=== PATIENT | female | born 1965 | race Caucasian/White ===

== ENCOUNTER 2020-12-20 10:25 | Outpatient (REF) | payer MEDICAID, SELFPAY ==
[2020-12-20 11:01] LABS: IDNOW Serial# 9DD0AD1C
[2020-12-20 11:02] LABS: COVID-19 Test Negative (Negative)
== END 2020-12-20 10:26 | disposition home or self-care (01) ==
LOC: HO.LAB 10:25
PROVIDERS: Visit Provider Internal Medicine
DX: Z20.822 Contact with and (suspected) exposure to COVID-19 (principal)
CPT/HCPCS: 36415; 87635; C9803

== ENCOUNTER 2021-04-18 13:59 | Outpatient (REF) | payer MEDICAID, SELFPAY | END 2021-04-18 14:00 | disposition home or self-care (01) | LOC: HO.LAB 13:59 | PROVIDERS: Visit Provider Internal Medicine | DX: Z20.822 Contact with and (suspected) exposure to COVID-19 (principal) | CPT/HCPCS: C9803; U0003; U0005 ==

== ENCOUNTER 2021-05-02 09:47 | Outpatient (REF) | payer MEDICAID, SELFPAY ==
--- NOTE | ~2021-05-02 | US_ITS ---
EXAMINATION: US RETROPERITONEAL COMPLETE (RENAL) CLINICAL INFORMATION: Abdominal pain. History of urinary calculi. COMPARISON: None TECHNIQUE: Real-time imaging of the kidneys and bladder. FINDINGS: RIGHT KIDNEY: 11.2 x 6.0 x 4.8 cm (SAG x AP x TRV). The kidney is normal in size, contour, and echogenicity. Renal cortical thickness is normal. No focal parenchymal lesions or hydronephrosis. There are several echogenic stones in the right kidney. 3 lower pole echogenic calculi measuring 0.4 x 0.2 cm, 0.4 x 0.3 cm, 0.5 to 0.4 cm and in midpole calculi measures 0.6 x 0.4 cm. No caliectasis seen. LEFT KIDNEY: 10.4 x 5.3 x 5.1 cm (SAG x AP x TRV). The kidney is normal in size, contour, and echogenicity. Renal cortical thickness is normal. No focal parenchymal lesions or hydronephrosis. There are several echogenic stones visualized. There are 3 upper pole echogenic stones measuring 0.8 x 0.5 cm, 0.5 to 0.2 cm, 0.6 x 0.3 cm. 2 midpole echogenic stones measures 0.3 x 0.2 cm and 0.2 x 0.2 cm. There are 3 lower pole echogenic stones measuring 0.4-0.3 cm, 0.4-0.3 cm and 0.4-0.3 cm. There is no caliectasis. BLADDER: Well distended and normal. Bilateral ureteral jets are demonstrated. Prevoid bladder volume is 344.0 mL. Postvoid bladder volume is 9.6 mL. US/US retroperitoneal comp IMPRESSION: Bilateral small echogenic renal calculi. No hydronephrosis. Bilateral ureteral jets seen with a tiny postvoid bladder volume of 9.55 mL.
== END 2021-05-02 09:48 | disposition home or self-care (01) ==
LOC: HO.US 09:47
PROVIDERS: Visit Provider Internal Medicine Geriatric Medicine
DX: R10.9 Unspecified abdominal pain (principal); Z87.442 Personal history of urinary calculi
CPT/HCPCS: 76770

== ENCOUNTER 2021-05-18 08:18 | Outpatient (REF) | payer MEDICAID, SELFPAY ==
--- NOTE | ~2021-05-18 | MM_ITS ---
EXAMINATION: MM SCREENING DIGITAL BREAST TOMOSYNTHESIS, BILATERAL CLINICAL INFORMATION: Screening. Asymptomatic. The lifetime risk of breast cancer based on the Tyrer-Cuzick Model is 5%. COMPARISON: Mammography: 10/10/2017, 02/01/2016 TECHNIQUE: Digital breast tomosynthesis is performed in both the craniocaudal and mediolateral oblique views along with computer-aided detection (CAD). Synthesized 2D images are generated from the tomosynthesis. Additional left MLO view is provided. FINDINGS: There are scattered areas of fibroglandular density (ACR BI-RADS breast composition Category b). There are no significant masses, abnormal calcifications, or other abnormalities. Parenchymal pattern is similar to prior studies. No significant changes. MM/MM tomosynthesis screening BI IMPRESSION: No mammographic evidence of malignancy. ASSESSMENT: BI-RADS 1: Negative RECOMMENDATION: Routine annual mammography screening. This patient's information was entered into a reminder system with a target due date for their next mammogram.
== END 2021-05-18 08:19 | disposition home or self-care (01) ==
LOC: HO.MAMMO 08:18
PROVIDERS: Visit Provider Registered Nurse Community Health
DX: Z12.31 Encounter for screening mammogram for malignant neoplasm of breast (principal)
CPT/HCPCS: 77063; 77067

== ENCOUNTER 2021-11-06 08:33 | Day surgery (SDC) | payer MEDICAID, SELFPAY ==
[2021-10-31 16:57] VITALS: BMI 39.9
--- NOTE | 2021-11-05 10:55 | HO.ANESPROP2 ---
Documented by User: Kalli Aleman NP 11/05/21 10:56 HPI - Anesthesia Eval Consult details Narrative: 56yo F for Colonoscopy [facility] Past Medical History Medical History Allergic rhinitis Anxiety and depression Asthma GERD (gastroesophageal reflux disease) History of nephrolithiasis Surgical History Surgical History History of cholecystectomy Social History Social History Patient Tobacco Use Status: Never used Tobacco Use of substances other than those prescribed or required for medical reasons: No Are you DNR?: No Advance Directives: No Advance Directives Information Provided: Yes Meds Allergies Allergy/AdvReac Type Severity Reaction Status Date / Time Seasonal Allergies Allergy Unknown Verified 11/05/21 12:36 amoxicillin AdvReac Unknown diarrhea Verified 03/06/16 00:00 Home Medications Medication Instructions Recorded Confirmed Last Taken Type cholecalciferol (vitamin D3) 125 125 mcg PO DAILY 10/31/21 10/31/21 Unknown History mcg (5,000 unit) tablet (Vitamin D3) famotidine 20 mg tablet 20 mg PO BID PRN Acid Reflux 10/31/21 10/31/21 Unknown History loratadine 10 mg tablet (Claritin) 10 mg PO DAILY vitamin d3 10/31/21 10/31/21 Unknown History Exam Exam Date and Time: November 05, 2021 1055 Height,Weight and Vital Signs: Height 5 ft 2 in Weight 98.883 kg Assessment and Plan Assessment Anesthesia Assessment: Chart Reviewed Documented by User: Lay Ferguson MD 11/06/21 09:12 [facility] Past Medical History Medical History Allergic rhinitis Anxiety and depression Asthma GERD (gastroesophageal reflux disease) History of nephrolithiasis Functional capacity: independent ambulation Patient : No Family History Family history of problems with anesthesia: No Surgical History Surgical History History of cholecystectomy History of Problems with Anesthesia: No Social History Social History Patient Tobacco Use Status: Never used Tobacco Use of substances other than those prescribed or required for medical reasons: No Are you DNR?: No Advance Directives: No Advance Directives Information Provided: Yes Meds Allergies Allergy/AdvReac Type Severity Reaction Status Date / Time Seasonal Allergies Allergy Unknown Verified 11/05/21 12:36 amoxicillin AdvReac Unknown diarrhea Verified 03/06/16 00:00 Home Medications Medication Instructions Recorded Confirmed Last Taken Type cholecalciferol (vitamin D3) 125 125 mcg PO DAILY 10/31/21 10/31/21 Unknown History mcg (5,000 unit) tablet (Vitamin D3) famotidine 20 mg tablet 20 mg PO BID PRN Acid Reflux 10/31/21 10/31/21 Unknown History loratadine 10 mg tablet (Claritin) 10 mg PO DAILY vitamin d3 10/31/21 10/31/21 Unknown History Exam Airway Mallampati Class: II TM Dist: >3cm Neck ROM: Full Heart: RRR Lungs: CTA Assessment and Plan Final Anesthetic Review Family History of Problems with Anesthesia: No History of Problems with Anesthesia: No ASA Class: II Final Preanesthetic Review: No Changes in Pt Med Stat, Meds/Allgs Chart Reviewed, Consent Obtained/Reviewed and Anes Risks/Benef Reviewed Patient Risk: Low Procedure Risk: Low Anesthetic Plan Anesthetic Plan: MAC: Disposition: Standard PACU
[2021-11-06 09:01] VITALS: BMI 39.3
[2021-11-06 09:05] VITALS: BP 140/75; PULSE 88; RESP 16; TEMP 35.7; O2SAT 99
[2021-11-06] MEDS: Lactated Ringers 1,000 ML 100 ML IVCONT (09:07)
--- NOTE | 2021-11-06 09:34 | MHC.SHP ---
Pre-Procedural Eval Section A Date of Service: 11/06/21 Section B Chief Complaint: screening Details of Present Illness: see H&P no changes Relevant Family History (Specify if Yes): No Relevant Social History: None Present Medications: see Short Stay Collaborative assessment Medical History: No relevant PMH Allergies: Allergies Allergy/AdvReac Type Severity Reaction Status Date / Time Seasonal Allergies Allergy Unknown Verified 11/05/21 12:36 amoxicillin AdvReac Unknown diarrhea Verified 03/06/16 00:00 Review of Systems Sugical H&P ROS: Negative: Constitution, Cardiovascular, Respiratory, Neurological, Psychiatric, Hem-Onc, Allergic/Immunologic, Gastrointestinal, Genitourinary, Musculoskeletal, Integumentary, Endocrine and Eyes/Ears/Nose/Throat Exam Surgical H&P Exam: Normal: HEENT, Normal: Heart, Normal: Lungs, Normal: Extremities, Normal: Abdomen, Normal: Skin and Normal: Neurological Plan Diagnosis/Plan: Unchanged I have reviewed the history and physical and performed a pertinent physical examination on my patient. No changes have occurred unless specified.
--- NOTE | 2021-11-06 09:59 | PM.OP ---
Brief Operative Note Date of Service: 11/06/21 Pre-op diagnosis: screening Post-op diagnosis: same Surgeon: Jonas Augustin Anesthesia: MAC Was an Power Digger Operator used for this Procedure?: No Estimated blood loss (mL): 0 Pathology: none sent Condition: stable Disposition: PACU
[2021-11-06 10:02] VITALS: BP 100/59; PULSE 81; RESP 16; TEMP 36.2; O2SAT 97
[2021-11-06 10:17] VITALS: BP 123/77; PULSE 81; RESP 16; TEMP 36.2; O2SAT 98
--- NOTE | 2021-11-06 11:02 | HO.POSTANES ---
Post Anesthesia Evaluation Post Anesthesia Evaluation Vital Signs: Vital Signs Temp Pulse Resp BP Pulse Ox O2 Del Method 11/06/21 10:17 97.1 F 81 16 123/77 98 Room Air 11/06/21 10:02 97.1 F 81 16 100/59 L 97 Room Air 11/06/21 09:05 96.2 F L 88 16 140/75 H 99 Room Air Anesthesia: Monitored Mental Status: Awake Pain Control: Satisfactory Nausea/Vomiting: None Hydration: Adequate Anesthesia-Related Issues: No Anes. Related Issues
--- NOTE | 2021-11-06 12:56 | OP_ITS ---
SURGEON: Jonas Augustin MD INDICATIONS: Colon cancer screening. PREOPERATIVE DIAGNOSIS: POSTOPERATIVE DIAGNOSIS: PROCEDURE PERFORMED: Colonoscopy to the terminal ileum. ESTIMATED BLOOD LOSS: COMPLICATIONS: ANESTHESIA: ASSISTANTS: SPECIMENS: MEDICATIONS: Monitored anesthesia care. DESCRIPTION OF PROCEDURE: History and physical were performed. The risks and benefits of the procedure were explained to the patient. Informed consent was obtained. The patient was placed in the left lateral decubitus position. A digital rectal exam was performed and was found to be normal. The Olympus pediatric video colonoscope was introduced into the rectum and advanced to the cecum without difficulty. The cecum was identified by transillumination, palpation, and identification of ileocecal valve. Examination was performed. The scope was removed. She tolerated the procedure well and was sent to recovery area in stable condition. FINDINGS: The terminal ileum was normal. The visualized colonic mucosa was within normal limits without evidence of masses or ulcers. No polyps were identified. Retroflexed examination showed moderate-sized internal hemorrhoids. The quality of the prep was good. IMPRESSION: Normal screening colonoscopy. RECOMMENDATION: 1. Follow up as needed. 2. Repeat colonoscopy is recommended in 10 years for average risk individuals. MD CORY Goldsmith/SAW / [id number]
== END 2021-11-06 10:34 | disposition home or self-care (01) ==
PROVIDERS: PCP Registered Nurse Community Health; Visit Provider Internal Medicine Gastroenterology
PROC: 0DJD8ZZ Inspection of Lower Intestinal Tract, Via Natural or Artificial Opening Endoscopic (ICD-10-PCS; CPT 45378; principal; 2021-11-06 09:40)
DX: Z12.11 Encounter for screening for malignant neoplasm of colon (principal); Z83.71 Family history of colonic polyps; K64.8 Other hemorrhoids; K21.9 Gastro-esophageal reflux disease without esophagitis; F41.8 Other specified anxiety disorders; J45.909 Unspecified asthma, uncomplicated; Z87.442 Personal history of urinary calculi; Z79.899 Other long term (current) drug therapy
CPT/HCPCS: 45378

== ENCOUNTER 2022-01-17 08:02 | Outpatient (REF) | payer MEDICAID, SELFPAY ==
--- NOTE | ~2022-01-17 | XR_ITS ---
EXAMINATION: XR LUMBOSACRAL SPINE WITH OBLIQUES CLINICAL INFORMATION: Low back pain. COMPARISON: None TECHNIQUE: AP, both oblique, and lateral views of the lumbar spine. Lateral view of the lumbosacral junction. FINDINGS: There are 5 nonrib-bearing lumbar vertebral bodies. Normal sagittal alignment. No spondylolysis or spondylolisthesis. Vertebral body heights and intervertebral disc spaces are maintained. Sacroiliac joints are intact. Surgical clips project over the right upper quadrant. XR/XR lumbar spine 4V min IMPRESSION: No acute abnormality.
== END 2022-01-17 08:03 | disposition home or self-care (01) ==
LOC: HO.XRAY 08:02
PROVIDERS: PCP Registered Nurse Community Health; Visit Provider Emergency Medicine
DX: M54.42 Lumbago with sciatica, left side (principal)
CPT/HCPCS: 72110

== ENCOUNTER 2022-06-18 11:42 | Outpatient (REF) | payer MEDICAID, SELFPAY ==
--- NOTE | ~2022-06-18 | MM_ITS ---
EXAMINATION: MM SCREENING DIGITAL BREAST TOMOSYNTHESIS, BILATERAL CLINICAL INFORMATION: Screening. Asymptomatic. The lifetime risk of breast cancer based on the Tyrer-Cuzick Model is 5.1%. COMPARISON: Mammography: May 18, 2021 and studies dating back to November 29, 2014 TECHNIQUE: Digital breast tomosynthesis is performed in both the craniocaudal and mediolateral oblique views along with computer-aided detection (CAD). Synthesized 2D images are generated from the tomosynthesis. FINDINGS: The breasts are almost entirely fatty (ACR BI-RADS breast composition Category a). There are no significant masses, abnormal calcifications, or other abnormalities. MM/MM tomosynthesis screening BI IMPRESSION: No significant changes from prior exam. ASSESSMENT: BI-RADS 1: Negative RECOMMENDATION: Routine annual mammography screening. This patient's information was entered into a reminder system with a target due date for their next mammogram.
== END 2022-06-18 11:43 | disposition home or self-care (01) ==
LOC: HO.MAMMO 11:42
PROVIDERS: PCP Registered Nurse; Visit Provider Registered Nurse
DX: Z12.31 Encounter for screening mammogram for malignant neoplasm of breast (principal)
CPT/HCPCS: 77063; 77067

== ENCOUNTER 2022-11-04 12:04 | Outpatient (REF) | payer MEDICAID, SELFPAY ==
[2022-11-05 17:33] LABS: HIV RNA PCR Qn Copies NOT DETECTED copies/mL (NOT DETECTED); HIV RNA PCR Qn Log Copies NOT DETECTED (NOT DETECTED)
[2022-11-06 03:45] LABS: HBsAGNum1 0.33 S/CO (0.00-0.99); Hepatitis A Antibody IgM 0.21 Index (0-0.79); Hepatitis B Core Antibody Nonreactive (Nonreactive); Hepatitis B Surface Antigen Negative (Negative); ~HepC Num1 0.79 S/CO (0.00-0.79); ~Hepatitis A Antibody IgM Nonreactive (Nonreactive); ~Hepatitis B Surface Antibody REACTIVE (Nonreactive); ~Hepatitis C Antibody Nonreactive (Nonreactive)
[2022-11-07 03:14] LABS: TS Negative Control Passed; TS Panel A 0; TS Panel B 0; TS Positive Control Passed; TSpotTB Negative (Negative)
== END 2022-11-04 12:05 | disposition home or self-care (01) ==
LOC: HO.LAB 12:04
PROVIDERS: PCP Registered Nurse; Visit Provider Registered Nurse
DX: Z00.00 Encounter for general adult medical examination without abnormal findings (principal)
CPT/HCPCS: 0353U; 80053; 80061; 82306; 82607; 82728; 82746; 83036; 83540; 83735; 84443; 85025; 86481; 86704; 86706; 86709; 86780; 86803; 87340; 87536

== ENCOUNTER 2022-12-13 15:25 | Outpatient (REF) | payer MEDICAID, SELFPAY ==
[2022-12-13 17:48] LABS: Alanine Aminotransferase 27 U/L (0-31); Albumin Level 4.1 g/dL (3.5-5.0); Alkaline Phosphatase 116 U/L (39-117); Aspartate Amino Transferase 20 U/L (5-31); Bilirubin Direct < 0.2 mg/dL (0.0-0.5); Bilirubin Total 0.2 mg/dL (0.0-1.0); C Reactive Protein 1.46 mg/dL (< or = 0.50)
[2022-12-13 17:50] LABS: Rheumatoid Factor < 13.0 IU/mL (<15.0)
[2022-12-13 18:19] LABS: Erythrocyte Sedimentation Rate 33 MM/HR (0-20)
[2022-12-17 10:23] LABS: Prot Elec - Albumin 3.8 g/dL (3.8-4.8); Prot Elec - Alpha1 0.3 g/dL (0.2-0.3); Prot Elec - Alpha2 0.8 g/dL (0.5-0.9); Prot Elec - Beta 1 0.6 g/dL (0.4-0.6); Prot Elec - Beta 2 0.6 g/dL (0.2-0.5); Prot Elec - Gamma 1.4 g/dL (0.8-1.7); Prot Elec - Total Protein 7.4 g/dL (6.1-8.1)
[2022-12-18 15:24] LABS: Anti Nuclear Antibody Screen NEGATIVE (NEGATIVE)
== END 2022-12-13 15:26 | disposition home or self-care (01) ==
LOC: HO.HHCL 15:25
PROVIDERS: Visit Provider Registered Nurse
DX: M25.50 Pain in unspecified joint (principal); R77.9 Abnormality of plasma protein, unspecified
CPT/HCPCS: 36415; 80076; 84165; 85652; 86038; 86140; 86431

== ENCOUNTER 2023-06-19 08:51 | Outpatient (REF) | payer OTHER, SELFPAY ==
--- NOTE | ~2023-06-19 | MM_ITS ---
EXAMINATION: MM SCREENING DIGITAL BREAST TOMOSYNTHESIS, BILATERAL CLINICAL INFORMATION: Screening. Asymptomatic. COMPARISON: Mammography: 06/18/2022, 05/18/2021, and dating back to 2012. TECHNIQUE: Digital breast tomosynthesis is performed in both the craniocaudal and mediolateral oblique views along with computer-aided detection (CAD). Synthesized 2D images are generated from the tomosynthesis. FINDINGS: There are scattered areas of fibroglandular density (ACR BI-RADS breast composition Category b). There are stable and unchanged benign intramammary lymph nodes in the upper outer bilateral breasts, posterior one third. There are no suspicious masses, suspicious grouped calcifications, or areas of architectural distortion in either breast. The parenchymal pattern is stable from prior exams. There is no skin or axillary abnormality. MM/MM tomosynthesis screening BI IMPRESSION: No mammographic evidence of malignancy. ASSESSMENT: BI-RADS BI-RADS 2 - Benign Findings RECOMMENDATION: Routine annual mammography screening. 1 year F/U This examination should not preclude the clinical evaluation of a suspicious palpable abnormality. This patient's information was entered into a reminder system with a target due date for their next mammogram.
== END 2023-06-19 08:52 | disposition home or self-care (01) ==
LOC: HO.MAMMO 08:51
PROVIDERS: PCP Registered Nurse; Visit Provider Registered Nurse
DX: Z12.31 Encounter for screening mammogram for malignant neoplasm of breast (principal)
CPT/HCPCS: 77063; 77067

== ENCOUNTER → 2023-06-19 09:00 | Outpatient (BNV) | payer OTHER, SELFPAY | PROVIDERS: PCP Registered Nurse; Visit Provider Radiology Diagnostic Radiology | DX: Z12.31 Encounter for screening mammogram for malignant neoplasm of breast (principal) | CPT/HCPCS: 77063; 77067 ==

== ENCOUNTER 2023-12-19 12:20 | Outpatient (REF) | payer OTHER, SELFPAY ==
[2023-12-22 15:21] LABS: CT PCR NOT DETECTED (Not Detect.); NG PCR NOT DETECTED (Not Detect.)
== END 2023-12-19 12:21 | disposition home or self-care (01) ==
LOC: HO.HHCL 12:20
PROVIDERS: Visit Provider Registered Nurse
DX: Z00.00 Encounter for general adult medical examination without abnormal findings (principal)
CPT/HCPCS: 87491; 87591

== ENCOUNTER 2023-12-19 14:03 | Outpatient (REF) | payer OTHER, SELFPAY ==
--- NOTE | ~2023-12-19 | XR_ITS ---
EXAMINATION: XR NASAL BONES CLINICAL INFORMATION: Nasal swelling, bruising, and pain after trauma to the face. COMPARISON: None available. TECHNIQUE: 3 views of the nasal bones were obtained. FINDINGS: No fracture or dislocation is seen. No bone, joint or soft tissue abnormality is appreciated. The visualized paranasal sinuses appear unremarkable. XR/XR nasal bones min 3V IMPRESSION: Unremarkable examination. Electronically signed by: Gabino Decker MD 12/28/2023 03:08 PM EDT
== END 2023-12-19 14:04 | disposition home or self-care (01) ==
LOC: HO.HHCX 14:03
PROVIDERS: Visit Provider Internal Medicine Geriatric Medicine
DX: J34.89 Other specified disorders of nose and nasal sinuses (principal); S00.83XA Contusion of other part of head, initial encounter; T74.91XA Unspecified adult maltreatment, confirmed, initial encounter
CPT/HCPCS: 70160

== ENCOUNTER 2023-12-19 14:15 | Outpatient (REF) | payer OTHER, SELFPAY ==
[2023-12-19 16:11] LABS: MANUAL DIFF FLAG NO
[2023-12-19 16:19] LABS: Basophils Absolute Auto 0.1 X10*3/uL (0.0-0.2); Basophils Percent Auto 0.5 % (0-2); Eosinophils Absolute Auto 0.1 X10*3/uL (0.0-0.4); Eosinophils Percent Auto 0.9 % (0-4); Hematocrit 42.3 % (37.0-47.0); Hemoglobin 13.2 g/dl (12.0-16.0); Imm Gran Abs Auto 0.03 X10*3/uL (0.00-0.03); Imm Gran Pct Auto 0.3 % (0.0-0.4); Lymphocytes Absolute Auto 2.4 X10*3/uL (1.2-4.9); Lymphocytes Percent Auto 23.5 % (20-40); Mean Corpuscular HGB Conc 31.2 g/dl (31.0-35.0); Mean Corpuscular Hemoglobin 26.4 pg (27.0-33.0); Mean Corpuscular Volume 84.6 fL (80.0-98.0); Mean Platelet Volume 9.9 fL (9.4-12.3); Monocytes Absolute Auto 0.5 X10*3/uL (0.1-1.2); Monocytes Percent Auto 4.7 % (2-11); Neutrophils Absolute Auto 7.2 x10*3/uL (2.0-8.3); Neutrophils Percent Auto 70.1 % (45-73); Platelet Count 387 X10*3/uL (160-400); Red Cell Distribution Width 14.6 % (11.0-16.0); White Blood Count 10.3 X10*3/uL (4.8-10.8)
[2023-12-19 16:21] LABS: Estimated Average Glucose 105 mg/dL; Hemoglobin A1c % 5.3 % (<6.0)
[2023-12-19 16:36] LABS: Alanine Aminotransferase 20 U/L (0-31); Albumin Level 4.4 g/dL (3.5-5.0); Alkaline Phosphatase 126 U/L (39-117); Anion Gap 16 (12-20); Aspartate Amino Transferase 18 U/L (5-31); Bilirubin Total 0.4 mg/dL (0.0-1.0); Blood Urea Nitrogen 11 mg/dL (9-16); Calcium 10.2 mg/dL (8.4-10.2); Carbon Dioxide 25 mmol/L (22-29); Chloride 106 mmol/L (96-108); Cholesterol 174 mg/dL (<200); Estimated Glomerular Filt Rate > 60; Glucose Random 99 mg/dL (60-115); HDL Cholesterol 57 mg/dL (>40); LDL Cholesterol Calculated 103 mg/dL (<100); Magnesium 2.5 mg/dL (1.6-2.6); Potassium 4.5 mmol/L (3.3-5.1); Sodium 142 mmol/L (135-145); Total Protein 8.3 g/dL (6.5-8.0); Triglycerides 72 mg/dL (<150)
[2023-12-19 16:44] LABS: HBS Num1 42.19 mIU/mL (0-7.99); HBc Num1 0.11 S/CO (0.00-0.79); HBsAGNum1 0.29 S/CO (0.00-0.99); HIV AB/AG Nonreactive (Nonreactive); HIV Num 1 0.07 S/CO (0.00-0.99); Hepatitis B Core Antibody Nonreactive (Nonreactive); Hepatitis B Surface Antigen Negative (Negative); ~Hepatitis B Surface Antibody REACTIVE (Nonreactive)
[2023-12-19 16:56] LABS: Ferritin 27 ng/mL (10-250)
[2023-12-19 16:58] LABS: Folate 11.5 ng/mL (> or = 4.0); Vitamin B12 314 pg/mL (200-900)
[2023-12-21 19:39] LABS: TS Negative Control Passed; TS Panel A 0; TS Panel B 0; TS Positive Control Passed; TSpotTB Negative (Negative)
[2023-12-22 13:18] LABS: HCV Log PCR <1.18 NOT DETECTED Log IU/mL (NOT DETECTED); HepC Viral Load <15 NOT DETECTED IU/mL (NOT DETECTED)
[2023-12-23 18:09] LABS: RPR Rapid Plasma Reagin NON-REACTIVE (NON-REACTIVE)
== END 2023-12-19 14:16 | disposition home or self-care (01) ==
LOC: HO.HHCL 14:15
PROVIDERS: Visit Provider Registered Nurse
DX: Z00.00 Encounter for general adult medical examination without abnormal findings (principal); G47.62 Sleep related leg cramps
CPT/HCPCS: 36415; 80053; 80061; 82306; 82607; 82728; 82746; 83036; 83735; 84443; 85025; 86481; 86592; 86704; 86706; 87340; 87389; 87522

== ENCOUNTER 2024-03-31 15:01 | Outpatient (AMB) | payer OTHER, SELFPAY ==
[2024-03-31 15:05] VITALS: BP 150/80; PULSE 84; BMI 38.9
--- NOTE | 2024-03-31 15:05 | MHC.OFFVIS ---
Vital Signs 03/31/24 15:05 Height 5 ft 2 in Weight 212 lb 8.41 oz BMI 38.9 BP 150/80 H Blood Pressure Location Lt brachial Position Sitting Pulse 84 Intake Visit Reasons: MEDICAL ART THERAPIST/NTacos Phalen/Palpitations Lump Maker Required: No Accompanied by: Self / Same As Patient Allergies Seasonal Allergies Allergy (Verified 11/05/21 12:36) Unknown amoxicillin Adverse Reaction (Unknown, Verified 03/06/16 00:00) diarrhea Medication List - Last Reconciled 03/31/24 by Wil Vyas MD celecoxib (Celebrex) 50 mg PO ONCE cholecalciferol (vitamin D3) (Vitamin D3) 125 mcg PO DAILY cyclobenzaprine 10 mg PO BEDTIME PRN famotidine 20 mg PO BID PRN loratadine (Claritin) 10 mg PO DAILY HPI Comments Details: Denise is here for consultation regarding palpitations. She she feels episodes of a sudden thump in the chest. Nothing persistent. She has had this for last few years or so but much more recently. No clear-cut anginal-type symptoms or other cardiac concerns. No known coronary disease or cardiomyopathy. Not known diabetic or hypertensive. Today's blood pressure is slightly high that could be from anxiety. Possible slowing at nighttime but no documented sleep apnea. She is overweight. PENDING SALE TO [facility] Medical History History of nephrolithiasis Allergic rhinitis Asthma Anxiety and depression GERD (gastroesophageal reflux disease) Surgical History History of cholecystectomy Family History (Updated 03/31/24 @ 15:12 by Duyen Pierce CMA) Mother HTN (hypertension) DM2 (diabetes mellitus, type 2) Father DM2 (diabetes mellitus, type 2) Social History (Updated 03/31/24 @ 15:12 by Duyen Pierce CMA) Alcohol intake: never Patient Tobacco Use Status: Never used Tobacco Review of Systems Const Denies chills, Denies daytime sleepiness, Denies fatigue, Denies fever(s), Denies poor appetite, Denies snoring, Denies stops breathing during sleep, Denies weakness, Denies weight gain and Denies weight loss Eyes Denies loss of vision ENT Denies dizziness and Denies hearing loss Card Denies chest pain, Denies irregular heart rhythm, Denies claudication, Denies leg edema, Denies lightheadedness, Denies palpitations, Denies dyspnea on exertion and Denies orthopnea Resp Denies cough, Denies excessive phlegm production, Denies dyspnea on exertion, Denies snoring and Denies wheezing GI Denies abdominal pain, Denies hematochezia, Denies change in bowel habits, Denies nausea and Denies vomiting Denies urinary frequency and Denies dysuria Musc Denies arthralgias, Denies muscle weakness, Denies numbness and Denies other Skin/Breast Denies nail changes and Denies rash Neuro Denies Abnormal speech present, Denies dizziness, Denies loss of vision, Denies memory loss, Denies numbness and Denies weakness Psych Denies depression and Denies memory loss Endo Denies fatigue and Denies palpitations Trent/Lymph Denies easy bruising Aller/Immun Denies wheezing Physical Exam Vital Signs: Last Vital Signs Pulse 84 03/31/24 15:05 BP 150/80 H 03/31/24 15:05 BMI result Body Mass Index 38.9 Const General: comfortable and no acute distress Orientation/consciousness: patient oriented x3 HEENT Other: Unremarkable Head: Yes normal to inspection Neck Neck: Yes normal visual inspection Chest Chest palpation & inspection: normal inspection of the chest Resp Auscultation: clear to auscultation bilaterally Cardio Palpation: normal PMI Heart sounds: S1 normal heart sound present, S2 normal heart sound present, no gallops, no murmurs and no rubs GI Palpation (GI): Soft to palpation Back/Spine/Pelvis Other: unremarkable Skin General skin exam: no rashes or lesions noted Neuro General: patient oriented x3 Speech: No Abnormal speech present Extrem General: Yes normal to inspection Psych Mental Status: mental status grossly normal Office Procedures EKG Details: EKG with underlying sinus rhythm at 84/Min; PVCs. Normal MA and borderline prolonged corrected QT. 475ms. [id number], Complete Assessment & Plan Assessment & Plan (1) PVC (premature ventricular contraction): Code(s): I49.3 - Ventricular premature depolarization Category: Medical (2) Heart palpitations: Code(s): R00.2 - Palpitations Category: Medical Plan Isolated PVCs on the EKG which could contribute to palpitations. Findings discussed with patient. Obtain echocardiogram, Holter monitor and a home sleep study. We will plan further care based on the above. Orders: Orders CA echo transthoracic complete Today I49.3 - Ventricular premature depolarization, R00.2 - Palpitations ECG 3 day holter monitor Today I49.3 - Ventricular premature depolarization, R00.2 - Palpitations RT home sleep study Today G47.33 - Obstructive sleep apnea (adult) (pediatric) Coding Level of Care Code New Pt Level 4 (96950) Diagnoses PVC (premature ventricular contraction) I49.3 Heart palpitations R00.2 CPT Codes EKG - CPT: 05469-[id number], Complete ([id number])
== END 2024-03-31 15:29 | disposition home or self-care (01) ==
PROVIDERS: PCP Registered Nurse; Visit Provider Internal Medicine
DX: I49.3 Ventricular premature depolarization (principal); R00.2 Palpitations
CPT/HCPCS: 93010; 99204

== ENCOUNTER → 2024-03-31 15:01 | Outpatient (BNVA) | payer OTHER, SELFPAY | PROVIDERS: PCP Registered Nurse; Visit Provider Internal Medicine | DX: I49.3 Ventricular premature depolarization (principal); R00.2 Palpitations | CPT/HCPCS: 93005; 99202 ==

== ENCOUNTER → 2024-04-26 07:45 | Outpatient (REF) | payer OTHER, SELFPAY ==
--- NOTE | 2024-04-26 07:48 | CA_ITS ---
Transthoracic Echocardiogram Patient (Last, First, Middle): Denise Huang D Gender: Female Date of : 1965 Age: 58 Procedure Date: 04/26/2024 Procedure Type: Transthoracic Echocardiogram Location: OP Height: 157.48 cm Weight: 95.26 kg BSA: 1.95 m2 Heart Rate: bpm BP: 136 / 80 mmHg Director Enterprise Systems: SHERI Referring MD: Wil Vyas MD Garage Construction Equipment Mechanic: Daniele Huddleston MD Symptoms: R00.2 - Palpitations Study Quality: Adequate ECG Rhythm: Sinus Conclusions: - 1. Normal LV systolic function with LVEF of 60-65% with grade 1 diastolic dysfunction 2. Normal cardiac valvular Dopplers 3. Normal RV systolic pressure 4. No gross pericardial effusion Findings Left Ventricle Normal left ventricular size, thickness, and systolic function. The visually estimated ejection fraction is between 60-65%. Spectral Doppler is indicative of an impaired relaxation filling pattern. E/E prime ratio is <8, consistent with normal filling pressures. Evidence suggests grade I (mild) diastolic dysfunction. Peak GLS is -23.1%, within normal limits Right Ventricle Normal right ventricular cavity size and systolic function. Atria The left atrium is likely dilated. There is no evidence of interatrial shunt. The right atrium is normal in size. Aortic Valve The aortic valve structure and function is likely normal. There is no aortic valve stenosis. There is no aortic valve regurgitation. Mitral Valve Likely normal mitral valve structure and function. There is mild mitral valve regurgitation. There is no mitral valve stenosis. Pulmonic Valve The pulmonic valve is likely normal. Tricuspid Valve Likely normal tricuspid valve structure and function. There is trace tricuspid valve regurgitation. The right ventricular systolic pressure is normal. The right ventricular systolic pressure is 22 mmHg. Normal right atrial pressure. There is no evidence of pulmonary hypertension. Great Vessels All visible segments of the aorta are normal in size. The pulmonary artery was not well visualized. There is no dilatation of the ascending aorta measuring 2.70 cm. Venous The inferior vena cava is normal in size and collapses greater than 50% with inspiration. Pericardium/Pleural There is no evidence of pericardial effusion. Prior Study Comparison No prior study available for comparison. Measurements 2D Linear Measurements IVSd: 0.95 0.6-0.9/0.6-1.0 cm LVIDd: 3.97 3.9-5.3/4.2-5.9 cm LVIDd Index: 2.04 2.4-3.2/2.2-3.1 cm/m2 LVIDs: 2.55 2.0-3.6 cm LVPWd: 1.05 0.7-1.1 cm LA Diam: 3.60 2.7-3.8/3.0-4.0 cm LAIDs Index: 1.85 1.5-2.3 cm/m2 LV Mass: 156.66 67-162/88-224 g LV Mass Index: 80.34 43-95/49-115 g/m2 LVOT Diam: 2.10 3.0+(-)1.3 cm 2D Systolic Function EF 4C: 59.20 >55% EF 2C: 70.20 >55% EF BiP: 64.60 >55% Mitral Valve MV Pk E: 0.79 MV PK A: 0.99 MV Decel Time: 173.00 E/A: 0.80 E'Lateral: 10.30 E'Medial: 6.85 E/E' Med: 11.50 E/E' Lat: 7.70 PHT: 51.00 MVA PHT: 4.31 Decel Reeves: 4.55 Aortic Valve AoV Pk Nico: 1.56 AoV Mn Nico: 1.09 AoV VTI: 0.36 AoV Pk Grad: 10.00 Aov Mn Grad: 5.00 JUSTIN Cont.VTI: 2.37 LVOT LVOT Pk Nico: 0.99 LVOT Mn Nico: 0.68 LVOT VTI: 0.25 LVOT Pk Grad: 4.00 LVOT Mn Grad: 2.00 LVOT Diam: 2.10 LVOT Area: 3.46 Diastolic Function MV Pk E: 0.79 MV Pk A: 0.99 E/A: 0.80 E'Medial: 6.85 E/E' Med: 11.50 E' Laterial: 10.30 E/E' Lat: 7.70 Right Ventricle TAPSE (mm): 22.20 TVS' Nico: 12.30 Tricuspid Valve TR Pk Nico: 2.20 TR Pk Grad: 19.00 RA Press: 3.00 RVSP: 22.00 Great Vessels Aorta Sinus of Valsalva: 2.89 2.0-3.[address] Ridge: 2.49 1.7-3.4 cm Ao Asc: 2.70 2.1-3.4 cm Updated in Other Vendor System with Status of Final Daniele Huddleston MD electronically signed on 04/27/2024 11:48:44 AM with status of Final
== END ==
LOC: HO.CARD 07:45
PROVIDERS: Visit Provider Internal Medicine
DX: R00.2 Palpitations (principal); I49.3 Ventricular premature depolarization
CPT/HCPCS: 93242; 93306; 93356

== ENCOUNTER → 2024-04-26 07:48 | Outpatient (BNV) | payer OTHER, SELFPAY | PROVIDERS: Visit Provider Internal Medicine Cardiovascular Disease | DX: I34.0 Nonrheumatic mitral (valve) insufficiency (principal) | CPT/HCPCS: 93244; 93306; 93356 ==

== ENCOUNTER → 2024-05-17 14:40 | Outpatient (REF) | payer OTHER, SELFPAY | LOC: HO.SL 14:40 | PROVIDERS: PCP Registered Nurse; Visit Provider Internal Medicine | DX: G47.33 Obstructive sleep apnea (adult) (pediatric) (principal) | CPT/HCPCS: 95806 ==

== ENCOUNTER → 2024-05-17 15:08 | Outpatient (BNV) | payer OTHER, SELFPAY | PROVIDERS: PCP Registered Nurse; Visit Provider Internal Medicine | DX: G47.33 Obstructive sleep apnea (adult) (pediatric) (principal) | CPT/HCPCS: 95806 ==

== ENCOUNTER 2024-07-12 13:59 | Outpatient (AMB) | payer OTHER, SELFPAY ==
[2024-07-12 14:14] VITALS: BP 130/85; PULSE 90; O2SAT 98; BMI 38.9
--- NOTE | 2024-07-12 14:14 | MHC.OFFVIS ---
Vital Signs 07/12/24 14:14 Height 5 ft 2 in Weight 212 lb 11.937 oz BMI 38.9 BP 130/85 Blood Pressure Location Lt brachial Position Sitting Pulse 90 Pulse Source Pulse Oximeter Pulse Oximetry (%) 98 Oxygen Delivery Method Room Air Intake Visit Reasons: annmarie Intake Note: pt is here as a new patient for sleep study results. Financial Services Officer Required: No Allergies Seasonal Allergies Allergy (Verified 07/12/24 14:35) Unknown amoxicillin Adverse Reaction (Unknown, Verified 07/12/24 14:35) diarrhea Medication List - Last Reconciled 07/12/24 by Selene Ledesma MD celecoxib (Celebrex) 50 mg PO ONCE PRN cholecalciferol (vitamin D3) (Vitamin D3) 125 mcg PO DAILY cyclobenzaprine 10 mg PO BEDTIME PRN famotidine 20 mg PO BID PRN loratadine (Claritin) 10 mg PO DAILY Do you need a note to return to daycare/school/sports/work: No HPI HPI annmarie: Details: This 58 years old very pleasant female is being seen for the 1st time for management of sleep apnea. She has history of frequent awakenings at night for the last 3 years or so. Nighttime awakenings were getting worse and she was not getting good sleep at night. She started having daytime fatigue and sleepiness. In the last 3 years she also has gradually put on more weight. Recently she started having palpitations during the night, for which she was referred to Cardiology. He home-based sleep study was ordered which is grossly abnormal so she has been referred to us for management sleep apnea. The reason for putting on weight in the last 3-4 years is described as change of life. She has had symptoms of fibromyalgia and is being treated with Celebrex 50 mg once a day only p.r.n.. She also has some GERD symptoms which are controlled with famotidine 20 mg once or twice a day. She has mild nasal congestion off and on and uses Claritin p.r.n.. [facility] Medical History (Updated 07/12/24 @ 14:47 by Selene Ledesma MD) Obesity (BMI 30-39.9) ANNMARIE (obstructive sleep apnea) History of nephrolithiasis Allergic rhinitis Asthma Anxiety and depression GERD (gastroesophageal reflux disease) Surgical History History of cholecystectomy Family History Mother HTN (hypertension) DM2 (diabetes mellitus, type 2) Father DM2 (diabetes mellitus, type 2) Social History Alcohol intake: never Patient Tobacco Use Status: Never used Tobacco Review of Systems Const All systems reviewed & are unremarkable except as noted in HPI and below Eyes Reports no additional complaints ENT Reports nasal congestion (Mild intermittent) Card Reports rapid heart rate and Reports irregular heart rhythm Resp Reports no additional complaints GI Reports heartburn (Intermittent symptoms of GERD) Reports no additional complaints Musc Reports other (Aches and pains in general body, described as fibromyalgia) Skin/Breast Reports system reviewed and no additional complaints, except as documented Neuro Reports no additional complaints Psych Reports no additional complaints Endo Reports no additional complaints Aller/Immun Reports no additional complaints Physical Exam Vital Signs: Last Vital Signs Pulse 90 07/12/24 14:14 BP 130/85 07/12/24 14:14 Pulse Ox 98 07/12/24 14:14 Oxygen Delivery Method Room Air 07/12/24 14:14 BMI result Body Mass Index 38.9 Const General: healthy appearing (Except for being overweight), comfortable, no acute distress, alert and awake Orientation/consciousness: patient oriented x3 HEENT Head: Yes normal to inspection General nose exam: No nasal polyps present and No nasal discharge present Face and sinus: Yes sinuses nontender Mouth: oropharynx abnormals (Somewhat narrow and crowded, Mallampati class 4) Throat: Yes posterior oropharynx normal Eyes General: appearance normal, both eyes and all related structures Neck Neck: Yes normal visual inspection, Yes no lymphadenopathy, Yes trachea midline, Yes no JVD and Yes other (Neck circumference 16 in) Thyroid: Thyroid normal Chest Chest palpation & inspection: normal inspection of the chest, normal palpation of entire chest wall and no tenderness Resp Effort & Inspection: normal respiratory effort Auscultation: clear to auscultation bilaterally, no crackles and no wheezes Cardio Palpation: normal PMI Rate: regular rate Rhythm: regular rhythm Heart sounds: no gallops and no murmurs Peripheral pulses: Peripheral pulses 2+ throughout GI Palpation (GI): Soft to palpation, nontender, No hepatosplenomegaly present and no masses Auscultation: normal bowel sounds Back/Spine/Pelvis Thoracic/Lumbar Spine: thoracic and lumbar spine normal to inspection Skin General skin exam: no rashes or lesions noted Neuro General: patient oriented x3 and no focal motor deficits Cranial nerves: Yes CN's II-XII intact bilaterally Extrem General: Yes normal to inspection, Yes no clubbing, cyanosis or edema and Yes no calf tenderness Psych Appearance: grossly normal and well kempt Speech and movement: Normal speech and movement present Results Reviewed Results Reviewed: Report of home-based sleep study on 05/17/2024 is reviewed TOTAL SLEEP TIME AHI 21.8, SUPINE AHI 25, AND MOST OF THE SLEEP WAS IN SUPINE POSITION. SNORING FOR 23% OF THE SLEEP TIME. AVERAGE O2 SAT 94% AND LOWEST O2 SAT 81% O2 SAT BELOW 88% FOR 5 MINUTES Assessment & Plan Assessment & Plan (1) Obesity (BMI 30-39.9): Comment: PATIENT HAS GAINED WEIGHT OVER THE LAST 3 YEARS. AT PRESENT SHE IS GROSSLY OBESE, AND HAS ROUND FACE WITH SHORT AND OBESE NECK Code(s): E66.9 - Obesity, unspecified Category: Medical Plan: EXPLAINED TO THE PATIENT THAT SHE HAS PUT ON TOO MUCH WEIGHT IN THE LAST FEW YEARS AND THIS IS WHAT CONTRIBUTES TO HER SLEEP APNEA ONCE SHE STARTS TREATMENT WITH CPAP SHE SHOULD HAVE MORE ENERGY AND SHE NEEDS TO JOIN A WEIGHT MANAGEMENT PROGRAM. (2) ANNMARIE (obstructive sleep apnea): Comment: PATIENT HAS UNDERGONE HOME-BASED SLEEP STUDY WHICH IS POSITIVE FOR MODERATELY SEVERE OBSTRUCTIVE SLEEP APNEA, WITH TOTAL SLEEP TIME AHI 21.8 RECENTLY PATIENT HAS STARTED HAVING SOME PALPITATIONS ESPECIALLY AT NIGHT AND THESE SEEM TO BE RELATED TO SLEEP APNEA. Code(s): G47.33 - Obstructive sleep apnea (adult) (pediatric) Category: Medical Plan: WE TALKED TO THE PATIENT AT LENGTH AND EXPLAINED TO HER ABOUT THE RELATIONSHIP BETWEEN WEIGHT GAIN AND SLEEP APNEA. WE ALSO TALKED ABOUT RELATIONSHIP OF UN-TREATED SLEEP APNEA, AND CARDIAC ARRHYTHMIAS. RESULTS OF THE SLEEP STUDY ARE EXPLAINED TO HER. SHE WAS TOLD THAT THE BEST OPTION OF TREATMENT AT THIS TIME IS THE USE OF CPAP. SHE UNDERSTANDS WELL AND SHE IS WILLING TO START USING THE CPAP. ORDER FOR CPAP THERAPY WITH AUTO PAP MODE AND PRESSURE SETTING OF 6-20 CM IS BEING SENT. WOULD ADVISE A FULLFACE MASK TO START WITH ON LATER ON IT CAN BE CHANGED TO THE NASAL INTERFACE, IF. SHE WOULD LIKE TO DO THAT PATIENT WOULD NEED A CLOSE MONITORING FOR COMPLIANCE AND BENEFITS. Coding Level of Care Code New Pt Level 4 (84552) Diagnoses Obesity (BMI 30-39.9) E66.9 ANNMARIE (obstructive sleep apnea) G47.33
--- OUTSIDE RECORDS SUMMARY | 2024-07-12 16:27 | XMS_ITS | Encounter Summary ---
Author Organization [employer] [facility] Address [address] [place] [address] 7 [place] [address] Care Team Providers Care Presentation Manager Name Role Phone Ivonne Pena Primary Care Provider [phone] Encounter Details Date Type Department Care Team (Latest Contact Info) Description 02/04/2019 Abstract [facility] CONVERSIONS Dental, Provider, DDS Social History Tobacco Use Types Packs/Day Years Used Date Smoking Tobacco: Never Assessed Comments Unknown Sex and Gender Information Value Date Recorded Sex Assigned at Female 02/25/2022 10:14 AM EDT Legal Sex Female 10:14 AM EDT Gender Identity Female 02/25/2022 10:14 AM EDT Sexual Orientation Straight 02/25/2022 10 :14 AM EDT documented as of this encounter Plan of Treatment Upcoming Encounters Date Type Department Care Team (Late st Contact Info) Description 07/15/2024 3:00 PM EDT Office Visit [facility] ADULT DENTAL [address] [place] [address] Isaac, [place] [address] [place] [address] documented as of this encounter Visit Diagnoses Not on filedocumented in this encounter Care Teams Presentation Manager Relationship Specialty Start Date End Date Ivonne Pena FNP [address] [place] [address] PCP - General Family Medicine 12/24/21 documented as of this encounter
--- OUTSIDE RECORDS SUMMARY | 2024-07-12 16:27 | XMS_ITS | Encounter Summary ---
Author Organization [facility] Address [address] [place] [address] 7t [place] [address] Care Team Providers Care Choir Member Name Role Phone Ivonne Pena Primary Care Provider [phone] Reason for Visit * Reason Comments Med Refill Encounter Details Date Type Department Care Team (Late Contact Info) Description 11/03/2022 Refill [facility] MED[facility]INE [address] [place] [address] Ivonne Pena FNP [address] [place] [address] Social History Tobacco Use Types Packs/Day Years Used Date Smoking Tobacco: Never Passive Smoke Exposure: Never Smokeless Tobacco: Never Comments Unknown Sex and Gender Information Value Date Recorded Sex Assigned at Female 02/25/2022 10:14 AM EDT Legal Sex Female 10:14 AM EDT Gender Identity Female 02/25/2022 10:14 AM EDT Sexual Orientation Straight 02/25/2022 10 :14 AM EDT COVID-19 Exposure Response Date Recorded In the last 10 days, have yo u been in contact with someone who was confirmed or suspected to have Coronavirus/COVID-19? No / Unsure 11/04/2022 9:46 AM EDT documented as of this encounter Plan of Treatment Upcoming Encounters Date Type Department Care Team (Late Contact Info) Description 07/15/2024 3:00 PM EDT Office Visit [facility] ADULT DENTAL [address] [place] [address] Carolina Gray [address] [place] [address] documented as of this encounter Visit Diagnoses Not on filedocumented in this encounter Care Teams Choir Member Relationship Specialty Start Date End Date Ivonne Pena FNP [address] [place] [address] PCP - General Family Medicine 12/24/21 documented as of this encounter
--- OUTSIDE RECORDS SUMMARY | 2024-07-12 16:27 | XMS_ITS ---
Author Name [facility] Organization Unknown Care Team Organization Name Specialty Phone Email Start Date End [facility]
--- OUTSIDE RECORDS SUMMARY | 2024-07-12 16:27 | XMS_ITS | Encounter Summary ---
Author Organization [employer] [facility] Address [address] [facility] 7t [place] [address] Care Team Providers Care Technical Staff Assistant Name Role Phone Ivonne Pena MINDY Primary Care Provider [phone] Reason for Visit * Reason Onset Date Comments rs appt 03/10/2023 Encounter Details Date Type Department Care Team ([facility] st Contact Info) Description 03/10/2023 Telephone [facility] ADULT DENTAL [address] [place] [address] Paty Romero DDS [address] [place] [address] rs appt Social History Tobacco Use Types Packs/Day Years Used Date Smoking Tobacco: Never Passive Smoke Exposure: Never Smokeless Tobacco: Never Alcohol Use Standard Drinks/Week Comments Never 0 (1 standard drink = 0.6 oz pur e alcohol) Depression Answer Date Recorded Patient Health Questionnaire-9 Score 0 12/13/2022 Housing Stability Answer Date Recorded What is your housing situation today? I have christina mancilla 02/10/[address] you li ve. Do you have problems with any of the following? None of the above 02/10/2023 Food Insecurity Answer Date Recorded Within the past 12 months, y ou worried that your food would run out before you got money to buy more: Never True 02/10/2023 Within the past 12 months,th e food you bought just didn't last and you didn't have enough money to get more: Never True Transportation Answer Date Recorded In the past 12 months, has l ack of transportation kept you from medical appts, meetings, work or from getting things needed for daily living? No 02/10/2023 Utilities Answer Date Recorded In the past 12 months, has t he electric, gas, oil or water company threatened to shut off services in your home? No 02/10/2023 Depression Answer Date Recorded Patient Health Questionnaire-2 Score 0 12/13/2022 Comments Unknown Sex and Gender Information Value Date Recorded Sex Assigned at Female 02/25/2022 10:14 AM EDT Legal Sex Female 10:14 AM EDT Gender Identity Female 02/25/2022 10:14 AM EDT Sexual Orientation Straight 02/25/2022 10 :14 AM EDT documented as of this encounter Miscellaneous Notes * Telephone Encounter - Laurie Lezama - 03/10/2023 12:39 PM EST Patient had to cancel appt for 03/11 due to a mandatory work meeting. She needs a new date and time. She stated a message may be left seeing how she works during the day and may find it difficult to answer the line DR documented in this encounter Plan of Treatment Upcoming Encounters Date Type Department Care Team (Late st Contact Info) Description 07/15/2024 3:00 PM EDT Office Visit [facility] ADULT DENTAL [address] [place] [address] Carolina Gray [address] [place] [address] documented as of this encounter Visit Diagnoses Not on filedocumented in this encounter Additional Health Concerns Assessment Noted Time PHQ-9 Depression Total Score: 0 12/14/19 23 2:40 PM EDT documented as of this encounter Care Teams Technical Staff Assistant Relationship Specialty Start Date End Date Ivonne Pena FNP [address] [place] [address] PCP - General Family Medicine 12/24/21 documented as of this encounter
--- OUTSIDE RECORDS SUMMARY | 2024-07-12 16:27 | XMS_ITS | Patient Health Record ---
Author Organization [facility] Address [address] [place] [address] Care Team Providers Care Bleach Machine Operator Name Role Phone Rocío Cha Primary Care Provider Jonas Gaines Jr Unavailable [phone] Allergies Allergen (clinical drug ingredient) Drug/Non Drug Allergy documented on EMR Reaction Allergy Type Onset Date Status seasonal (uncoded) Unknown Allergy A ctive Reason For Referral No Information Medications Medication SIG (Take, Route, Frequency, Duration) Notes Start Date End Date Status Claritin 10 MG 1 tablet Orally Once a day for 30 day(s) Active Vitamin D-3 125 MCG (5000 UT) as directed Orally Active Famotidine 20 MG TAKE 1 TABLET BY TWICE A DAY NEEDED Oral for 30 Active MiraLax (colon prep) 17 GM/SCOOP mixed with Gatorade or Crystal Light Orally begin at 5:00 p.m. the day before the procedure for 1 day 09/19/2021 Active Immunizations Vaccine Route Administration Date Status Comme nts Influenza Unknown 02/13/2021 Administered Social History Tobacco Use: Social History Observation Description Date Details (start date - stop date) Never Smoker NA - NA Tobacco Use/Smoking Question Answer Notes Patient is a nonsmoker Alcohol Screen Question Answer Notes Did you have a drink containing alcohol in the p ast year? No Points 0 Interpretation Negative Problems Problem Type SNOMED Code ICD Code Onset Dates Problem Status W/U Status Risk Notes Problem [id number] Colon cancer screening (Z12.11) Active confirmed Plan Of Treatment Future Test Test Name Order Date COLONOSCOPY 09/19/2021 Insurance Providers Payer Name Payer Address Payer Phone Subscriber Number Group Number Insured Name Patient Relationship to Insured Coverage Start Date Coverage End Date [employer] [facility] [place] [address] [place] [id number] ADÁN CREWS Self - patient is the insured Medical (General) History Medical History History ICD Code Gastroesophageal reflux disease Anxiety/depression Nephrolithiasis Allergic rhinitis Asthma Surgical History Surgery Date(Month/Year) Cholecystectomy
--- OUTSIDE RECORDS SUMMARY | 2024-07-12 16:27 | XMS_ITS | Encounter Summary ---
Author Organization [employer] Address [address] [facility] 7 [place] [address] Care Team Providers Care Sub Prior Name Role Phone Ivonne Pena Primary Care Provider [phone] Reason for Visit * Reason Onset Date Comments May recall 06/16/2024 Encounter Details Date Type Department Care Team ([facility] Contact Info) Description 06/16/2024 Telephone [facility] CHC MED & PEDS [address] [place], [place] [phone] Ivonne Pena FNP [address] [place] [address] May recall Social History Tobacco Use Types Packs/Day Years Used Date Smoking Tobacco: Never Passive Smoke Exposure: Never Smokeless Tobacco: Never Alcohol Use Standard Drinks/Week Comments Never 0 (1 standard drink = 0.6 oz pur e alcohol) Depression Answer Date Recorded Patient Health Questionnaire-9 Score 0 12/17/2023 Patient Health Questionnaire-9 Score 0 12/17/2023 Last PHQ-9: Questionnaire Data Not on file 0 12/17/2023 Housing Stability Answer Date Recorded What is your housing situation today? I have christina mancilla 12/17/[address] you li ve. Do you have problems with any of the following? None of the above 12/17/2023 Food Insecurity Answer Date Recorded Within the past 12 months, y ou worried that your food would run out before you got money to buy more: Never True 12/17/2023 Within the past 12 months,th e food you bought just didn't last and you didn't have enough money to get more: Never True Transportation Answer Date Recorded In the past 12 months, has l ack of transportation kept you from medical appts, meetings, work or from getting things needed for daily living? No 12/17/2023 Utilities Answer Date Recorded In the past 12 months, has t he electric, gas, oil or water company threatened to shut off services in your home? No 12/17/2023 Depression Answer Date Recorded Patient Health Questionnaire-2 Score 0 12/17/2023 Internet Access Answer Date Recorded Internet Access Q1 Yes 12/28/2023 Internet Access Q2 Not on file 12/28/2023 Comments No Sex and Gender Information Value Date Recorded Sex Assigned at Female 02/25/2022 10:14 AM EDT Legal Sex Female 10:14 AM EDT Gender Identity Female 02/25/2022 10:14 AM EDT Sexual Orientation Straight 02/25/2022 10 :14 AM EDT documented as of this encounter Miscellaneous Notes * Telephone Encounter - Emanuel Mojica MA - 06/16/2024 3:54 PM EST Telephone call to patient to schedule a recall appointment. No answer, Left voicemail to return call to clinic.. Recall letter sent. Visit type: Follow up Appointment notes: Chronic conditions Month due: May With: Jean Please schedule appointment above if patient returns call documented in this encounter Plan of Treatment Upcoming Encounters Date Type Department Care Team (Late st Contact Info) Description 07/15/2024 3:00 PM EDT Office Visit [facility] ADULT DENTAL [address] [place] [address] Carolina Gray [address] [place] [address] documented as of this encounter Visit Diagnoses Not on filedocumented in this encounter Additional Health Concerns Assessment Noted Time PHQ-9 Depression Total Score: 0 12/17/19 24 9:23 AM EDT documented as of this encounter Care Teams Sub Prior Relationship Specialty Start Date End Date Ivonne Pena FNP [address] [place] [address] PCP - General Family Medicine 12/24/21 documented as of this encounter
--- OUTSIDE RECORDS SUMMARY | 2024-07-12 16:27 | XMS_ITS | Encounter Summary ---
Author Organization [employer] Address [address] [place] [address] Care Team Providers Care Supervisor Order Takers Name Role Phone Ivonne Pena MINDY Primary Care Provider [phone] Encounter Details Date Type Department Care Team ([facility] st Contact Info) Description 07/07/2024 Telephone [facility] ADULT DENTAL [address] [place] [address] Isael Grayaris [address] [place] [address] Social History Tobacco Use Types Packs/Day Years [...] encounter Miscellaneous Notes * Telephone Encounter - Reji Lee - 07/07/2024 10:01 AM EDT LEFT MESSAGE TO INFORM PATIENT OF NO ACTIVE DENTAL COVERAGE TO CALL US BACK WITH NEW OR UPDATE INFO. MJ 07/07/24 documented in this encounter Plan of Treatment Upcoming Encounters Date Type Department Care Team (Late st Contact Info) Description 07/15/2024 3:00 PM EDT Office Visit [facility] ADULT DENTAL [address] [place] [address] Isael Garyaris [address] [place] [address] documented as of this encounter Visit Diagnoses Not on filedocumented in this encounter Additional Health Concerns Assessment Noted Time PHQ-9 Depression Total Score: 0 12/17/19 24 9:23 AM EDT documented as of this encounter Care Teams Supervisor Order Takers Relationship Specialty Start Date End Date Ivonne Pena FNP [address] [place] [address] PCP - General Family Medicine 12/24/21 documented as of this encounter
--- OUTSIDE RECORDS SUMMARY | 2024-07-12 16:27 | XMS_ITS | Clinical Summary ---
Author Organization [facility] Address [address] [place] [address] Care Team Providers Care Senior Landscape Architect Name Role Phone Unavailable Primary Care Provider Unavailabl e Social History Tobacco Use Types Packs/Day Years Used Date Smoking Tobacco: Never Assessed Sex and Gender Information Value Date Recorded Sex Assigned at Not on file Gender Identity Not on file Sexual Orientation Not on file Plan of Treatment Health Maintenance Due Date Last Done Comments Hepatitis C Virus Screening 1965 HIV Screening 07/17/1980 DTaP/Tdap/Td Vaccines (1 - Tdap) 07/17/1986 Hepatitis B Vaccines (1 of 3 - 19+ 3-dose series) 07/17/1986 Pneumococcal Vaccines 50+ (1 of 1 - PCV) 07/17/2017 Zoster (Shingles) Vaccine (1 of 2) 07/17/2017 COVID-19 Vaccine ( - 2023-2 5 season) 2023 Pneumococcal Vaccine: Pediat antionette (0-5 Years) and At-Risk Patients (6 to 49 Years) Aged Out No longer eligible b ased on patient's age to complete this topic
--- OUTSIDE RECORDS SUMMARY | 2024-07-12 16:27 | XMS_ITS | Clinical Summary ---
Author Organization [employer] Address [address] [place] [address] 7[address] [place] [address] Care Team Providers Care Airflight Attendants Supervisor Name Role Phone Ivonne Pena MINDY Primary Care Provider [phone] Allergies Active Allergy Reactions Criticality Noted Date Comments Pollen Extract Unknown 10/04/2021 Medications fluticasone (Flonase) 50 MCG/ACT nasal spray Administer 2 sprays into each nostril in the morning. Shake gently. Before first use, prime pump. After use, clean tip and replace cap. 16 g 2 4 Active meclizine (Antivert) 25 MG tablet Take 1 tablet (25 mg) by mouth if needed in the morning, at noon, and at bedtime for dizziness. 36 tablet 1 4 Active cholecalciferol VITAMIN D (Vitamin D-3) 50 MCG (2000 UT) capsule TAKE 1 CAPSULE (50 MCG) BY MOUTH ONCE DAILY. 90 capsule 1 4 Active loratadine (Claritin) 10 MG tablet TAKE 1 TABLET BY MOUTH EVERY DAY IN THE MORNING 90 tablet 3 4 Active cyclobenzaprine (Flexeril) 10 MG tabletIndicatio ns:Generalized joint pain TAKE 1 TABLET BY MOUTH EVERY DAY IF NEEDED 30 tablet 3 4 Active Blood Pressure kit 1 each 2 times daily. 1 kit 5 06/02/19 26 Active Spacer/Aero-Hol ding Chambers (OptiChamber Shayla) misc 1 each every 4 (four) hours if needed (asthma). 1 each 5 Active albuterol (ProAir HFA) 108 (90 Base) MCG/ACT inhaler Inhale 2 puffs every 4 (four) hours if needed for wheezing or shortness of breath. 18 g 3 5 Active amoxicillin-cla vulanate (Augmentin) 875-125 MG tablet Take 1 tablet by mouth 2 times daily. 10 tablet 5 Active Active Problems Problem Noted Date Diagnosed Date Localized gingival recession 01/14/2024 Palpitations 12/18/2023 Assessment & Plan (12/18/2023 7:16 AM EDT): Referral for further eval through Cards placed 12/17/23 ED precautions Generalized joint pain 11/10/2022 Assessment & Plan (12/18/2023 7:18 AM EDT): Diffuse aching pain > 1 year Fibromyalgia rapid screening tool: positive Differential includes fibromyalgia vs RA vs lupus vs neuropathies vs other Lab eval: CBC and TSH WNL October ESR/CRP mild elevation; EVELYN, and RF negative Continues with symptomatic management including APAP, celebrex, and cyclobenzaprine PRN Encourage non-pharm methods including acupuncture, sufficient sleep, movement Assessment & Plan (12/14/2022 6:00 PM EDT): ?? Diffuse aching pain > 3 months duration ?? Fibromyalgia rapid screening tool: positive ?? Differential includes fibromyalgia vs RA vs lupus vs neuropathies vs other ?? Lab eval: CBC and TSH WNL October 2022, check ESR/CRP, EVELYN, and RF ?? Continues with symptomatic management including APAP, celebrex, and cyclobenzaprine PRN ?? Encourage non-pharm methods including acupuncture, sufficient sleep, movement Assessment & Plan (11/10/2022 9:14 PM EDT): ?? Sister diagnosed with fibromyalgia ?? Continues with symptomatic management including APAP, celebrex, and cyclobenzaprine PRN. Healthcare maintenance 11/10/2022 Overview (12/18/2023): Mammo: BIRADS 2 on 06/19/23 Pap: NILM HPV neg 06/04/21 (distant hx of abnormal prior to 2013) Colonoscopy: 11/06/21 at [facility] w/ Dr. Augustin. Normal. Repeat 10 years. Dental: [facility] Dental OPH: [facility] Eye Care Last PE: 12/17/23 Vaccines: eligible for Shingles vaccine Assessment & Plan (12/14/2022 5:58 PM EDT): Repeat hepatic panel for elevated protein, lifestyle interventions recommended for cholesterol levels Menopausal symptom 09/17/2017 Assessment & Plan (11/10/2022 9:11 PM EDT): ?? Experiencing hot flashes. Discussed possible interventions, pt most interested in natural and lifestyle interventions at this time. Allergic rhinitis 07/27/2012 Assessment & Plan (11/10/2022 9:11 PM EDT): -Continue with loratadine 10mg daily and flonase PRN Resolved Problems Problem Noted Date Diagnosed Date Resolved Date Periodontal disease 08/12/2023 12/17/19 24 Dental calculus 07/04/2023 12/17/2023 Missing teeth, acquired 07/04/2023 08/2 04/2023 Localized gingival recession 07/04/2023 12/17/2023 Mild intermittent asthma 11/03/202201/2023 Overview (11/03/2022): ?? Continues with albuterol PRN Assessment & Plan (11/03/2022 8:30 PM EDT): Reviewed Rule of 2's ACT score: Peripheral edema 09/17/2017 11/10/2022 Gastroesophageal reflux disease 09/30/2013 11/04/2022 Mixed anxiety and depressive disorder 07/27/2012 11/04/2022 Encounters Date Type Department Care Team Description 07/07/2024 Telephone [facility] AD[facility] D[facility]AL [address] [place] [address] Carolina Gray 06/16/2024 Telephone [facility] [address] [place], [place] [phone] Ivonne Pena FNP May06/03/2024 Telephone [facility] [address] [place] [phone] Dylan Quigley MD Prior Authorization (Compact Space Chamber Device) 06/02/2024 10:00 AM EST [facility] Visit [facility] [address] [address] Dylan Quigley MD Acute cough (Primary Dx); Elevated blood pressure reading in office without diagnosis of hypertension; Acute non-recurrent sinusitis, unspecified location 05/27/2024 10:00 AM EST Office Visit [facility] [address] [address] Roly Bryant MD Influenza A from Last 3 Months Immunizations Name Administration Dates Next Due Hep A, Adult 08/02/2005,10/14/2000 Hep B, adult 08/02/2005,11/18/2000,10/14/2000 Influenza injectable quadriv alent IIV4 with preservative 02/01/2016 Influenza injectable quadriv alent preservative free 02/13/2021,03/04/2019,06/29/2018 Influenza, IIV3, injectable 02/13/2021, 4,05/16/2011 Influenza, Split (incl. jodi fied surface antigen) 05/04/2013 MMR 11/18/2000 TD (adult), 2 Lf tetanus tox oid, preservative free, adsorbed 08/02/2005 Tdap 11/04/2022,07/27/2012 Family History Medical History Relation Name Comments Diabetes type II Brother Diabetes Father Cirrhosis Mother Diabetes Mother heart condition Mother Relation Name Status Comments Brother Father Mother Social History Tobacco Use Types Packs/Day Years Used Date Smoking Tobacco: Never Passive Smoke Exposure: Never Smokeless Tobacco: Never Tobacco Cessation:Counseling Given: Not Answered Alcohol Use Standard Drinks/Week Comments Never 0 [...] Orientation Straight 02/25/2022 10 :14 AM EDT Last Filed Vital Signs Vital Sign Reading Time Taken Comments Blood Pressure 155/84 06/02/2024 10:29 AM EST Pulse 88 06/02/2024 10:29 AM EST Temperature 36.6 ??C (97.9 ??F) 06/02/2024 10:[address] Respiratory Rate 20 06/02/2024 10:29 AM EST Oxygen Saturation 98% 06/02/2024 10:29 AM EST Inhaled Oxygen Concentration - - Weight 95.3 kg (210 lb 3.2 oz) 06/02/2024 10:29 AM EST Height 157.5 cm (5' 2 ) 05/27/2024 9:50 AM EST Body Mass Index 38.45 05/27/2024 9:50 AM EST Plan of Treatment Upcoming Encounters Date Type Department Care Team (Late st Contact Info) Description 07/15/2024 3:00 PM EDT Office Visit [facility] D[facility] [address] [place] [address] Carolina Higuera [address] [place] [address] Health Maintenance Due Date Last Done Comments CT Colonography 1965 FIT DNA/Cologuard 1965 FIT 1965 FOBT 1965 Sigmoidoscopy 1965 Pneumococcal Vaccine: 50+ Years (1 of 1 - PCV) 07/17/2017 Zoster Vaccines (1 of 2) 07/17/2017 COVID-19 Vaccine (4 - season) 2023 10/04/2021, 02/03/2021, 01/11/2021 Influenza Vaccine (#1) 2023 , 02/13/2021, 03/04/2019, Additional history exists Mammogram 06/19/2024 06/19/2023, 05/30, 05/18/2021, Additional history exists Dental X-Ray: Bitewings 07/04/2024 07/04/19 24, 02/19/2023, 02/03/2019, Additional history exists Dental Oral Exam 07/14/2024 01/14/2024, 12/2018, 02/03/2019, Additional history exists Dental Prophylaxis 07/14/2024 01/14/2024, 0 07/04/2023, 02/04/2019, Additional history exists Alcohol/Substance Use Screening 12/16/2024 12/17/2023 Depression Screening 12/16/2024 12/17/2023, 12/17/19 24 SDOH Screening 12/16/2024 12/17/2023 Tobacco Screening 06/02/2025 06/02/2024 Cervical Cancer Screening 06/04/2026 HPV/Cotest 06/04/2026 06/04/2021 Pap Smear 06/04/2026 06/04/2021 Dental X-Ray: Full Mouth 07/04/2026 07/04/2023, 12/2018 Colonoscopy 11/07/2031 11/06/2021 Colorectal Cancer Screening 11/07/2031 DTaP/Tdap/Td Vaccines (3 - Td or Tdap) 11/04/2032 11/04/2022, 07/27/2012, 08/02/2005 RSV Patients and Patients Aged 60 years or older (1 - 1-dose 75+ series) 07/17/2042 Hepatitis A Vaccines Aged Out 08/02/2005, 10/15/19 01 No longer eligible based on patient's age to complete this topic Hepatitis B Vaccines Completed 08/02/2005, 11/18/2000, 10/14/2000 HIV Screening Completed 12/19/2023, 11/04/2022 Hepatitis C Screening Completed 12/19/2023, 023 HIB Vaccines Aged Out No longer eligi ble based on patient's age to complete this topic HPV Vaccines Aged Out No longer eligi ble based on patient's age to complete this topic IPV Vaccines Aged Out No longer eligi ble based on patient's age to complete this topic Meningococcal Vaccine Aged Out No muna joseph eligible based on patient's age to complete this topic RSV under 20 months Aged Out No longe r eligible based on patient's age to complete this topic Rotavirus Vaccines Aged Out No longer eligible based on patient's age to complete this topic Procedures Procedure Name Priority Date/Time Associated Diagnosis Comments POCT INFLUENZA B (ID NOW RAPID MOLECULAR) Routine 05/27/2024 10:00 AM EST Influenza A POCT RAPID COVID ANTIGEN Routine 05/27/2024 9:53 AM EST Influenza A POCT INFLUENZA A (ID NOW RAPID MOLECULAR) Routine 05/27/2024 9:53 AM EST Influenza A PROPHYLAXIS - ADULT Routine 01/14/2024 3 :00 PM EDT Localized gingival recession PERIODIC ORAL EVALUATION - ESTABLISHED PATIENT Routine 01/14/2024 3:00 PM EDT HEPATITIS C VIRAL RNA, QUANTITATIVE, REAL-TIME PCR Routine 12/19/2023 2:23 PM EDT Encounter for routine history and physical examination of adult HIV 1/2 ANTIGEN/ANTIBODY, FOURTH GENERATION W/RFL Routine 12/19/2023 2:23 PM EDT Encounter for routine history and physical examination of adult INTRAORAL - COMPLETE SERIES OF RADIOGRAPHIC IMAGES Routine 07/04/2023 3:00 PM EST BI MAMMOGRAM SCREENING TOMOSYNTHESIS BILATERAL Routine 06/19/2023 9:15 AM EST HM COLONOSCOPY Routine 11/06/2021 THINPREP IMAGING PAP AND HPV MRNA E6/E7 WITH REFLEX TO HPV 16,18/45 Routine 06/04/2021 10:36 AM EST from Last 3 Months or Most Recently Relevant to Health Maintenance Results * POCT Rapid Influenza B HERRERA ID NOW (05/27/2024 10:00 AM EST) [facility] Influenza B Negative Negative, Indeterminate [facility] QC Media Lot # [id number] [facility] Lot# Expiration Date [facility] Swab 05/27/2024 10:0 0 AM EST Roly Bryant MD POINT OF CARE TEST ENTER/EDIT OR DERABLES Final Result Performing Organization Address [facility] Co de Phone Number [facility] [address] [place] [phone] * (ABNORMAL) POCT Rapid Influenza A HERRERA ID NOW (05/27/2024 9:53 AM EST) [facility] Influenza A Positive( A) Negative, Indeterminate [facility] QC Media Lot # [id number] [facility] Lot# Expiration Date [facility] Swab 05/27/2024 9:53 AM EST us Roly Bryant MD POINT OF CARE TEST ENTER/EDIT OR DERABLES Edited Result - Final Performing Organization Address [facility] Co de Phone Number [facility] [address] [place] [phone] * POCT Rapid Covid-19 BinaxNOW (05/27/2024 9:53 AM EST) [facility] Rapid COVID Ag Negative QC Media Lot # [id number] Lot# Expiration Date [id number] Swab 05/27/2024 9:53 AM EST Roly Bryant MD POINT OF CARE TEST ENTER/EDIT OR DERABLES Final Result * Hepatitis C Viral RNA, Quantitative, Real-Time PCR (12/19/2023 2:23 PM EDT) Pathologist [facility] Hepatitis C Viral Load <15 NOT DETECTED NOT DETECTED IU/mL [facility] HCV Log PCR <1.18 NOT DETECTED NOT DETECTED Log IU/mL [facility] Comment:For additional infor mation, please refer tohttp://education.NEON Concierge/faq/EHL22e6(This link is being provided for informational/educational purposes only.)THIS TEST WAS PERFORMED AT:[facility] [place] [phone] LUIS MD Blood 12/19/2023 2:23 PM EDT 12/19/2023 4:07 PM EDT Ivonne Pena SENIOR C SOFTWARE DEVELOPER LAB BLOOD ORDERABLES Final Res ult [facility] [address] [place] [phone] * HIV-1/2 Antigen and Antibodies, Fourth Generation, with Reflexes (12/19/2023 2:23 PM EDT) HIV AB/AG Nonreactive Nonreactive [facility] Comment:HIV-1 p24 Ag and/or HIV-1/HIV-2 Ab not detected.A test result that is nonreactive does not exclude thepossibility of exposure to or infection with HIV-1 and/orHIV-2. Nonreactive results in this assay for individualswith prior exposure to HIV-1 and/or HIV-2 may be due toantigen and antibody levels that are below the limit ofdetection of this assay.The [employer] HIV Ag/Ab Combo assay result andsupplemental assay results should be interpreted inconjunction with the patient's clinical presentation,history and other laboratory results. If the results areinconsistent with clinical evidence, additional testing issuggested to confirm the result. Blood Venous blood specimen / Unknown 12/19/2023 2:23 PM EDT 12/19/2023 4:07 PM EDT us Ivonne Pena SENIOR C SOFTWARE DEVELOPER LAB BLOOD ORDERABLES Final Res ult [facility] [address] [place] [phone] * BI Mammogram Screening Tomosynthesis Bilateral (06/19/2023 9:15 AM EST) Anatomical Region Laterality Modality Breast Bilateral Mammography 06/19/2023 9:15 AM EST Narrative 07/09/2023 4:23 PM EDT ? [facility] ? [address] ?[place] [address] ? Mammography Report ? Signed ? Patient: Sal,Carlotta ?MR#: [id number] ?? 50 ? : 1965 ?Acct:[id number] ? Age/Sex: 57 / F ?ADM Date: 06/19/24 ? Loc: HO.MAMMO ? Attending Dr: Ivonne Pena SENIOR C SOFTWARE DEVELOPER ? Ordering Physician: Jean,Ivonne SENIOR C SOFTWARE DEVELOPER ?Results: 2Benig ?? n Findings ? Date of Service: 06/19/ ?Follow Up: 1 Year From Orig ?? inal Mammogram ? Procedure(s): MM tomosynthesis screening BI ?? Accession Number(s): [id number] ? cc: Ivonne PenaP ? EXAMINATION: ?? MM SCREENING DIGITAL BREAST TOMOSYNTHESIS, BILATERAL ? CLINICAL INFORMATION: ? Screening. Asymptomatic. ? COMPARISON: ?? Mammography: 06/18/2022, 05/18/2021, and dating back to 2012. ? TECHNIQUE: ?? Digital breast tomosynthesis is performed in both the craniocaudal and ?? mediolateral oblique views along with computer-aided detection (CAD). ?? Synthesized 2D images are generated from the tomosynthesis. ? FINDINGS: ?? There are scattered areas of fibroglandular density (ACR BI-RADS breast ?? composition Category b). ? There are stable and unchanged benign intramammary lymph nodes in the ?? upper outer bilateral breasts, posterior one third. ??There are no ?? suspicious masses, suspicious grouped calcifications, or areas of ?? architectural distortion in either breast. The parenchymal pattern is ?? stable from prior exams. ?? There is no skin or axillary abnormality. ? MM/MM tomosynthesis screening BI ?? IMPRESSION: ?? No mammographic evidence of malignancy. ? ASSESSMENT: ? BI-RADS BI-RADS 2 - Benign Findings ? RECOMMENDATION: ?? Routine annual mammography screening. ? 1 year F/U ? This examination should not preclude the clinical evaluation of a ?? suspicious palpable abnormality. ? This patient's information was entered into a reminder system with a ?? target due date for their next mammogram. ? Dictated By: ?Evin Cruz MD ? Signed By: ?<Electronically signed by Evin Cruz MD in OV> ?07/09/231618 ? DD/ 4 ? TD/TT: ? Meter/Relay Technician: ? Procedure Note Gautam, Divya - 07/09/2023 [facility] [address] [place], [place] [address] Mammography Report Signed Patient: Denise Huang DMR#: [id number] 50 : 1965Acct:[id number] Age/Sex: 57 / FADM Date: 06/19/23 Loc: HO.MAMMO Attending Dr: Ivonne GUILLEN Ordering Physician: Ivonne PenaPResults: 2Benig n Findings Date of Service: 06/19/23Follow Up: 1 Year From Orig inal Mammogram Procedure(s): MM tomosynthesis screening BI Accession Number(s): [id number] cc: Ivonne Pena SENIOR C SOFTWARE DEVELOPER EXAMINATION: MM SCREENING DIGITAL BREAST TOMOSYNTHESIS, BILATERAL CLINICAL INFORMATION: Screening. Asymptomatic. COMPARISON: Mammography: 06/18/2022, 05/18/2021, and dating back to 2012. TECHNIQUE: Digital breast tomosynthesis is performed in both the craniocaudal and mediolateral oblique views along with computer-aided detection (CAD). Synthesized 2D images are generated from the tomosynthesis. FINDINGS: There are scattered areas of fibroglandular density (ACR BI-RADS breast composition Category b). There are stable and unchanged benign intramammary lymph nodes in the upper outer bilateral breasts, posterior one third. There are no suspicious masses, suspicious grouped calcifications, or areas of architectural distortion in either breast. The parenchymal pattern is stable from prior exams. There is no skin or axillary abnormality. MM/MM tomosynthesis screening BI IMPRESSION: No mammographic evidence of malignancy. ASSESSMENT: BI-RADS BI-RADS 2 - Benign Findings RECOMMENDATION: Routine annual mammography screening. 1 year F/U This examination should not preclude the clinical evaluation of a suspicious palpable abnormality. This patient's information was entered into a reminder system with a target due date for their next mammogram. Dictated By: Evin Cruz MD Signed By: <Electronically signed by Evin Cruz MD in OV> 07/09/23 1619 DD/ 0915 TD/TT: Meter/Relay Technician: Ivonne GUILLEN IMG BI PROCEDURES Edited Resul t - Final * Hm Colonoscopy (11/06/2021) Colonoscopy Normal Normal 11/06/2021 us Historical Provider HEALTH MAINTENANCE Edited Result - Final * THINPREP TIS PAP AND HPV mRNA E6/E7 WITH REFLEX TO HPV 16,18/45 (06/04/2021 10:36 AM EST) Clinical Information: None given [facility] COMMENT SEE COMMENT [facility] Comment: EXPLANATORY NOTE: ? The Pap is a screening test for cervical cancer. It is ?? not a diagnostic test and is subject to false negative ?? and false positive results. It is most reliable when a ?? satisfactory sample, regularly obtained, is submitted ?? with relevant clinical findings and history, and when ?? the Pap result is evaluated along with historic and ?? current clinical information. ?? COMMENT: This Pap test has been evaluated with computer assisted technology. [facility] Scientist: SEE COMMENT [facility] Comment: SXA, CT(ASCP) CT screening location: [address] ??[address] HPV nRNA E6/E7 Not Detected Not Detected [facility] Comment: Methodology: Academic Guidance Specialist-Mediated Amplification This assay detects E6/E7 viral messenger RNA (mRNA) from 14 high-risk HPV types (16,18,31,33,35,39,45,51,52,56,58,59,66,68). ? The analytical performance characteristics of this assay have been determined by [employer]. The modifications have not been cleared or approved by the FDA. This assay has been validated pursuant to the CLIA regulations and is used for clinical purposes. ?? For additional information, please refer to http://education.Breakout Commerce.HouseTab/faq/GNC739s6 (This link if provided for information/ educational purposes only.) Interpretation/Re sult: Negative for intraepithelial lesion or malignancy. [facility] LMP: NONE GIVEN [facility] Prev. BX: NONE [facility]IVEN [facility] Prev. PAP: NONE GIVEN [facility] SOURCE: None given [facility] Statement Of Adequacy: SEE COMMENT [facility] Comment: Satisfactory for evaluation. Endocervical/transformation zone component present. Age and/or menstrual status not provided 06/04/2021 10:3 6 AM EST Rocío Cha NP LAB PATHOLOGY ORDERABLES Final Result [facility] [address] from Last 3 Months or Most Recently Relevant to Health Maintenance Insurance [facility] HSN PARTIAL (MEDICAID) Care Teams Airflight Attendants Supervisor Relationship Specialty Start Date End Date Ivonne Pena FNP [address] [place] [phone] PCP - General Family Medicine 12/24/21
== END 2024-07-12 14:33 | disposition home or self-care (01) ==
LOC: HO.HPS 13:59
PROVIDERS: PCP Registered Nurse; Visit Provider Internal Medicine
DX: G47.33 Obstructive sleep apnea (adult) (pediatric) (principal); E66.9 Obesity, unspecified; Z68.38 Body mass index [BMI] 38.0-38.9, adult
CPT/HCPCS: 99214

== ENCOUNTER → 2024-07-12 13:59 | Outpatient (BNVA) | payer OTHER, SELFPAY | PROVIDERS: PCP Registered Nurse; Visit Provider Internal Medicine | DX: G47.33 Obstructive sleep apnea (adult) (pediatric) (principal); E66.9 Obesity, unspecified; Z68.38 Body mass index [BMI] 38.0-38.9, adult | CPT/HCPCS: 99212 ==

== ENCOUNTER 2024-08-13 11:24 | Outpatient (REF) | payer OTHER, SELFPAY ==
--- OUTSIDE RECORDS SUMMARY | 2024-08-13 12:34 | XMS_ITS | Clinical Summary ---
Author Organization [facility] Address [address] [place] [address] Care Team Providers Care Tire Regrooving Machine Operator Name Role Phone Unavailable Primary Care Provider Unavailabl e Social History Tobacco Use Types Packs/Day Years Used Date Smoking Tobacco: Never Assessed Comments Unknown Sex and Gender Information Value Date Recorded Sex Assigned at Not on file Legal Sex Female 7:09 PM EST Gender Identity Not on file Sexual Orientation [...]
--- OUTSIDE RECORDS SUMMARY | 2024-08-13 12:34 | XMS_ITS | Patient Health Record ---
Author Organization [facility] Address [address] [place] [address] Care Team Providers Care Measuring Machine Tender Name Role Phone Rocío Cha Primary Care Provider Jonas Gaines Jr Unavailable Allergies Allergen (clinical drug ingredient) Drug/Non Drug [...] Problem Status W/U Status Risk Notes Problem [id number] Colon cancer screening (Z12.11) Active confirmed Plan Of Treatment Future Test Test Name Order Date COLONOSCOPY 09/19/2021 Insurance Providers Payer Name Payer Address Payer Phone Subscriber Number Group Number Insured Name Patient Relationship to Insured Coverage Start Date Coverage End Date [employer] [address] [place] [phone] [id number] ADÁN CREWS Self - patient is the insured Medical (General) History Medical History History ICD Code Gastroesophageal reflux disease Anxiety/depression Nephrolithiasis Allergic rhinitis Asthma Surgical History Surgery Date(Month/Year) Cholecystectomy
--- OUTSIDE RECORDS SUMMARY | 2024-08-13 12:34 | XMS_ITS | Encounter Summary ---
Author Organization [facility] Address [address] [place] [address] Care Team Providers Care Maintenance Helper Name Role Phone Ivonne Pena MINDY Primary Care Provider [phone] Reason for Visit * Reason Onset Date Comments rs appt 03/10/2023 Encounter Details Date Type Department Care Team ([facility] st Contact Info) Description 03/10/2023 Telephone [facility] [address] [place] [address] Paty Romero DDS [address] [place] [address] rs appt Social History Tobacco Use Types [...] documented in this encounter Plan of Treatment Not on file documented as of this encounter Visit Diagnoses Not on filedocumented in this encounter Additional Health Concerns Assessment Noted Time PHQ-9 Depression Total Score: 0 12/14/19 23 2:40 PM EDT documented as of this encounter Care Teams Maintenance Helper Relationship Specialty Start Date End Date Ivonne Pena FNP [address] [place] [phone] PCP - General Family Medicine 12/24/21 documented as of this encounter
--- OUTSIDE RECORDS SUMMARY | 2024-08-13 12:34 | XMS_ITS | Encounter Summary ---
Author Organization [employer] Address [address] [place] [address] 7t [place] [address] Care Team Providers Care French Instructor Name Role Phone Ivonne Pena Primary Care Provider [phone] Reason for Visit * Reason Comments Med Refill Encounter Details Date Type Department Care Team ([facility] st Contact Info) Description 11/03/2022 Refill [facility] [address] [place] [address] Ivonne Pena FNP [address] [place] [address] Social History Tobacco Use Types Packs/Day Years [...] as of this encounter Plan of Treatment Not on file documented as of this encounter Visit Diagnoses Not on filedocumented in this encounter Care Teams French Instructor Relationship Specialty Start Date End Date Ivonne Pena FNP [address] [place] [address] PCP - General Family Medicine 12/24/21 documented as of this encounter
--- OUTSIDE RECORDS SUMMARY | 2024-08-13 12:34 | XMS_ITS | Encounter Summary ---
Author Organization [employer] Address [address] [place] [address] 7 [place] [address] Care Team Providers Care Analog Device Designer Name Role Phone Ivonne Pena Primary Care Provider [phone] Encounter Details Date Type Department Care Team (Latest Contact Info) Description 02/04/2019 Abstract [facility] Dental, Provider, DDS Social History Tobacco [...] on filedocumented in this encounter Care Teams Analog Device Designer Relationship Specialty Start Date End Date Ivonne Pena FNP [address] [place] [phone] PCP - General Family Medicine 12/24/21 documented as of this encounter
--- OUTSIDE RECORDS SUMMARY | 2024-08-13 12:34 | XMS_ITS | Clinical Summary ---
Author Organization [employer] Address [address] [place] [address] 7t [place] [address] Care Team Providers Care Rail Flaw Detector Operator Name Role Phone Ivonne Pena MINDY Primary Care Provider [phone] Allergies Active Allergy Reactions Criticality Noted Date [...] abnormal prior to 2013) Colonoscopy: 11/06/21 at [facility] w/ Dr. Augustin. Normal. Repeat 10 years. Dental: [facility] Dental OPH: [facility] Eye Care Last PE: 12/17/23 Vaccines: [...] Encounters Date Type Department Care Team Description 07/13/2024 Telephone [facility] ADULT DENTAL [address] [place] [address] Carolina Gray 07/07/2024 Telephone [facility] ADULT DENTAL [address] [place] [address] Carolina Gray 06/16/2024 Telephone [facility] CHC MED & PEDS [address] [place] [address] Ivonne Pena FNP May06/03/2024 Telephone [facility] [address] [place] [phone] Dylan Quigley MD Prior Authorization (Compact Space Chamber Device) 06/02/2024 10:00 AM EST Office Visit [facility] [address] [place] [phone] Dylan Quigley MD Acute cough (Primary Dx); Elevated blood pressure reading in office without diagnosis of hypertension; Acute non-recurrent sinusitis, unspecified location 05/27/2024 10:00 AM EST Office Visit [facility] [address] [place] [address] [phone] Roly Bryant MD Influenza A from Last [...] 05/27/2024 9:50 AM EST Plan of Treatment Health Maintenance Due Date [...] 06/04/2021 Dental X-Ray: Full Mouth 07/04/2026 07/04/2023, 1012/2018 Colonoscopy 11/07/2031 11/06/2021 Colorectal Cancer Screening 11/07/2031 DTaP/Tdap/Td Vaccines (3 - Td or Tdap) 11/04/2032 11/04/2022, 07/27/2012, 08/02/2005 RSV Patients and Patients Aged 60 years or older (1 - 1-dose 75+ series) 07/17/2042 Hepatitis A Vaccines Aged Out 08/02/2005, 06/19/20 01 No longer eligible based on patient's [...] HERRERA ID NOW (05/27/2024 10:00 AM EST) Influenza B Negative Negative, Indeterminate [facility] QC Media Lot # [id number] [facility] Lot# Expiration Date [facility] Swab 05/27/2024 10:0 0 AM EST Roly Bryant MD POINT OF CARE TEST ENTER/EDIT OR DERABLES Final Result Performing Organization Address [facility] Co de Phone Number [facility] [address] [place] [phone] * (ABNORMAL) POCT Rapid Influenza A HERRERA ID NOW (05/27/2024 9:53 AM EST) Pathologist [facility] Influenza A Positive( A) Negative, Indeterminate [facility] QC Media Lot # [id number] [facility] Lot# Expiration Date [facility] Swab 05/27/2024 9:53 AM EST Roly Bryant MD POINT OF CARE TEST ENTER/EDIT OR DERABLES Edited Result - Final Performing Organization Address [facility]/ZIP Co de Phone Number [facility] [address] [place] [phone] * POCT Rapid Covid-19 BinaxNOW (05/27/2024 9:53 AM EST) Rapid COVID Ag Negative QC Media Lot # [id number] Lot# Expiration Date Swab 05/27/2024 9:53 AM EST Roly Bryant MD POINT OF CARE TEST ENTER/EDIT OR DERABLES Final Result * Hepatitis C Viral RNA, Quantitative, Real-Time PCR (12/19/2023 2:23 PM EDT) Pathologist [facility] Hepatitis C Viral Load <15 NOT DETECTED NOT DETECTED IU/mL [facility] HCV Log PCR <1.18 NOT DETECTED NOT DETECTED Log IU/mL [facility] Comment:For additional infor olivier, please refer tohttp://education.Ocutec/faq/SDG64l5(This link is being provided for informational/educational purposes only.)THIS TEST WAS PERFORMED AT:[employer] [place] [phone] LUIS MD Blood 12/19/2023 2:23 PM EDT 12/19/2023 4:07 PM EDT Ivonne Pena GENERAL PRACTICE LAB BLOOD ORDERABLES Final Res ult [facility] [address] [place] [address] [phone] * HIV-1/2 Antigen and Antibodies, Fourth Generation, with Reflexes (12/19/2023 2:23 PM EDT) Pathologist [facility] HIV AB/AG Nonreactive Nonreactive [facility] Comment:HIV-1 p24 Ag and/or HIV-1/HIV-2 Ab not detected.A test result that is nonreactive does not exclude thepossibility of exposure to or infection with HIV-1 and/orHIV-2. Nonreactive results in this assay for individualswith prior exposure to HIV-1 and/or HIV-2 may be due toantigen and antibody levels that are below the limit ofdetection of this assay.The [employer] HIV Ag/Ab Combo assay result andsupplemental assay results should be interpreted inconjunction with the patient's clinical presentation,history and other laboratory results. If the results areinconsistent with clinical evidence, additional testing issuggested to confirm the result. Blood Venous blood specimen / Unknown 12/19/2023 2:23 PM EDT 12/19/2023 4:07 PM EDT us Ivonne Jean GENERAL PRACTICE LAB BLOOD ORDERABLES Final Res ult [facility] [address] [place] [phone] [phone] * BI Mammogram Screening Tomosynthesis Bilateral (06/19/2023 9:15 AM EST) Anatomical Region Laterality Modality Breast Bilateral Mammography 06/19/2023 9:15 AM EST Narrative 07/09/2023 4:23 PM EDT ? [facility] ? [address] ?[place] [address] ? Mammography Report ? Signed ? Patient: Denise Huang ?MR#: [id number] ?? 50 ? : 1965 ?Acct:[id number] ? Age/Sex: 57 / F ?ADM Date: 06/19/23 ? Loc: HO.MAMMO ? Attending Dr: Ivonne Pena GENERAL PRACTICE ? Ordering Physician: Jean,Ivonne GENERAL PRACTICE ?Results: 2Benig ?? n Findings ? Date of Service: 06/19/23 ?Follow Up: 1 Year From Orig ?? inal Mammogram ? Procedure(s): MM tomosynthesis screening BI ?? Accession Number(s): [id number] ? cc: Ivonne Pena GENERAL PRACTICE ? EXAMINATION: ?? MM SCREENING DIGITAL BREAST [...] signed by Evin Cruz MD in OV> ?07/09/23 1619 ? DD/ 09 ? TD/TT: ? Manifest/Order Organizer Print Orders: ? Procedure Note Divya Florez - 07/09/2023 Shailesh [facility]'s [address] [place], [place] [address] Mammography Report Signed Patient: SalDenise [facility]#: [id number] 50 : 1965Acct:[id number] Age/Sex: 57 / FADM Date: 06/19/23 Loc: HO.MAMMO Attending Dr: Ivonne Pena GENERAL PRACTICE Ordering Physician: Ivonne PenaPResults: 2Benig n Findings Date of Service: 06/19/23Follow Up: 1 Year From Orig ina Mammogram Procedure(s): MM tomosynthesis screening BI Accession Number(s): [id number] cc: Ivonne Pena GENERAL PRACTICE EXAMINATION: MM SCREENING DIGITAL BREAST TOMOSYNTHESIS, BILATERAL [...] in OV> 07/09/23 1619 DD/ 0915 TD/TT: Manifest/Order Organizer Print Orders: Ivonne GUILLEN IMG BI PROCEDURES Edited Resul t - Final * Hm Colonoscopy (11/06/2021) Colonoscopy Normal Normal 11/06/2021 us Historical Provider [facility] Edited Result - Final * THINPREP TIS PAP AND HPV mRNA E6/E7 WITH REFLEX TO HPV 16,18/45 (06/04/2021 10:36 AM EST) Clinical Information: None given [facility] COMMENT SEE COMMENT [facility] [...] has been evaluated with computer assisted technology. [facility] Forest Firefighter: SEE COMMENT [facility] Comment: SXA, CT(ASCP) CT screening location: [address] ??[address] HPV nRNA E6/E7 Not Detected Not Detected [employer] Comment: Methodology: Skilled Nursing Professional-Mediated Amplification This assay detects E6/E7 viral messenger RNA (mRNA) from 14 high-risk HPV types (16,18,31,33,35,39,45,51,52,56,58,59,66,68). ? The analytical performance characteristics of this assay have been determined by [employer]. The modifications have not been cleared or approved by the FDA. This assay has been validated pursuant to the CLIA regulations and is used for clinical purposes. ?? For additional information, please refer to http://education.Ocutec/faq/RCY682a4 (This link if provided for information/ educational purposes only.) Interpretation/Re sult: Negative for intraepithelial lesion or malignancy. [facility] LMP: NONE GIVEN [facility] Prev. BX: NONE GIVEN [facility] Prev. PAP: NONE GIVEN [facility]OUND[facility] ON LAB SYSTEM SOURCE: None given [facility] Statement Of Adequacy: SEE COMMENT [facility] Comment: Satisfactory for evaluation. Endocervical/transformation zone component present. Age and/or menstrual status not provided 06/04/2021 10:3 6 AM EST us Rocío Beckwithemory JULIEN LAB PATHOLOGY ORDERABLES Final Result [facility] [address] from Last 3 Months or Most Recently Relevant to Health Maintenance Insurance [place] [id number] [place] [address] DENTAL - HSN PARTIAL (MEDICAID) Care Teams Rail Flaw Detector Operator Relationship Specialty Start Date End Date Ivonne Pena FNP [address] [place] [phone] PCP - General Family Medicine 12/24/21
== END 2024-08-13 11:25 | disposition home or self-care (01) ==
LOC: HO.MAMMO 11:24
PROVIDERS: PCP Registered Nurse; Visit Provider Registered Nurse
DX: Z12.31 Encounter for screening mammogram for malignant neoplasm of breast (principal)
CPT/HCPCS: 77063; 77067

== ENCOUNTER → 2024-08-13 11:45 | Outpatient (BNV) | payer OTHER, SELFPAY | PROVIDERS: PCP Registered Nurse; Visit Provider Internal Medicine | DX: Z12.31 Encounter for screening mammogram for malignant neoplasm of breast (principal) | CPT/HCPCS: 77063; 77067 ==

== ENCOUNTER 2024-09-14 15:15 | Outpatient (AMB) | payer OTHER, SELFPAY ==
[2024-09-14 15:31] VITALS: BP 110/70; PULSE 87; O2SAT 100; BMI 40.7
--- NOTE | 2024-09-14 15:31 | MHC.OFFVIS ---
Vital Signs 09/14/24 15:31 Height 5 ft 2 in Weight 222 lb 10.67 oz BMI 40.7 BP 110/70 Blood Pressure Location Lt brachial Position Sitting Pulse 87 Pulse Source Pulse Oximeter Pulse Oximetry (%) 100 Oxygen Delivery Method Room Air Intake Visit Reasons: annmarie Intake Note: pt is here for follow up of annmarie and is getting use of using the cpap Allergies Seasonal Allergies Allergy (Verified 09/14/24 15:43) Unknown amoxicillin Adverse Reaction (Unknown, Verified 09/14/24 15:43) diarrhea Medication List - Last Reconciled 09/14/24 by Selene Ledesma MD celecoxib (Celebrex) 50 mg PO ONCE PRN cholecalciferol (vitamin D3) (Vitamin D3) 125 mcg PO DAILY cyclobenzaprine 10 mg PO BEDTIME PRN famotidine 20 mg PO BID PRN loratadine (Claritin) 10 mg PO DAILY Do you need a note to return to daycare/school/sports/work: No HPI HPI annmarie: Details: This 59 years old very pleasant female is here for follow-up, and claims that she has been using the CPAP every night. She has nasal pillows as the interface and she feels comfortable in using the CPAP. Over last month she used it every night but missed 4 nights because of nasal congestion. She has actually thrilled that her sleep quality is much better when she uses the CPAP. She has no daytime sleepiness on the nights when she uses CPAP. REPLACED BY [facility] Medical History Obesity (BMI 30-39.9) ANNMARIE (obstructive sleep apnea) History of nephrolithiasis Allergic rhinitis Asthma Anxiety and depression GERD (gastroesophageal reflux disease) Surgical History History of cholecystectomy Family History Mother HTN (hypertension) DM2 (diabetes mellitus, type 2) Father DM2 (diabetes mellitus, type 2) Social History Alcohol intake: never Patient Tobacco Use Status: Never used Tobacco Review of Systems Const All systems reviewed & are unremarkable except as noted in HPI and below Eyes Reports no additional complaints ENT Reports nasal congestion (Mild intermittent) Card Reports rapid heart rate and Reports irregular heart rhythm Resp Reports no additional complaints GI Reports heartburn (Intermittent symptoms of GERD) Reports no additional complaints Musc Reports other (Aches and pains in general body, described as fibromyalgia) Skin/Breast Reports system reviewed and no additional complaints, except as documented Neuro Reports no additional complaints Psych Reports no additional complaints Endo Reports no additional complaints Aller/Immun Reports no additional complaints Physical Exam Vital Signs: Last Vital Signs Pulse 87 09/14/24 15:31 BP 110/70 09/14/24 15:31 Pulse Ox 100 09/14/24 15:31 Oxygen Delivery Method Room Air 09/14/24 15:31 BMI result Body Mass Index 40.7 Const General: healthy appearing (Except for being overweight), comfortable, no acute distress, alert and awake Orientation/consciousness: patient oriented x3 HEENT Head: Yes normal to inspection General nose exam: No nasal polyps present and No nasal discharge present Face and sinus: Yes sinuses nontender Mouth: oropharynx abnormals (Somewhat narrow and crowded, Mallampati class 4) Throat: Yes posterior oropharynx normal Eyes General: appearance normal, both eyes and all related structures Neck Neck: Yes normal visual inspection, Yes no lymphadenopathy, Yes trachea midline, Yes no JVD and Yes other (Neck circumference 16 in) Thyroid: Thyroid normal Chest Chest palpation & inspection: normal inspection of the chest, normal palpation of entire chest wall and no tenderness Resp Effort & Inspection: normal respiratory effort Auscultation: clear to auscultation bilaterally, no crackles and no wheezes Cardio Palpation: normal PMI Rate: regular rate Rhythm: regular rhythm Heart sounds: no gallops and no murmurs Peripheral pulses: Peripheral pulses 2+ throughout GI Palpation (GI): Soft to palpation, nontender, No hepatosplenomegaly present and no masses Auscultation: normal bowel sounds Back/Spine/Pelvis Thoracic/Lumbar Spine: thoracic and lumbar spine normal to inspection Skin General skin exam: no rashes or lesions noted Neuro General: patient oriented x3 and no focal motor deficits Cranial nerves: Yes CN's II-XII intact bilaterally Extrem General: Yes normal to inspection, Yes no clubbing, cyanosis or edema and Yes no calf tenderness Psych Appearance: grossly normal and well kempt Speech and movement: Normal speech and movement present Results Reviewed Results Reviewed: Compliance for the last 30 nights is reviewed. She used nights., 87% Average use it per night 5 hours 33 minutes. There is no significant air leak. Residual AHI only 0.5 Assessment & Plan Assessment & Plan (1) ANNMARIE (obstructive sleep apnea): Comment: Patient is confirmed case of obstructive sleep apnea. He has been using CPAP with a nasal pillows, regularly and sleeps much better. She missed a few nights during the month because of nasal congestion. She does claims that her sleep quality is much better when she uses CPAP. Compliance report is good. Code(s): G47.33 - Obstructive sleep apnea (adult) (pediatric) Category: Medical Plan: Encouraged to keep on using the CPAP every night regularly. If she has nasal congestion she might use Flonase 2 spray in each nostril daily and also may use Claritin 10 mg once a day p.r.n. (2) Obesity (BMI 30-39.9): Comment: PATIENT HAS GAINED WEIGHT OVER THE LAST 3 YEARS. AT PRESENT SHE IS GROSSLY OBESE, AND HAS ROUND FACE WITH SHORT AND OBESE NECK Code(s): E66.9 - Obesity, unspecified Category: Medical Plan: Discussed with the patient that it is very important for her to lose weight. She is going to try losing weight by watching her diet and walking daily. If the weight is not going down then consider joining a weight management program. Coding Level of Care Code Est Pt Level 3 (79891) Diagnoses ANNMARIE (obstructive sleep apnea) G47.33 Obesity (BMI 30-39.9) E66.9
--- OUTSIDE RECORDS SUMMARY | 2024-09-14 16:19 | XMS_ITS | Patient Health Record ---
Author Organization [facility] Address [address] [place] [address] Care Team Providers Care Mining Consultant Name Role Phone Rocío Cha Primary Care Provider Jonas Gaines Jr Unavailable [phone] Allergies Allergen (clinical drug ingredient) Drug/Non Drug [...] Problem Status W/U Status Risk Notes Problem [id number] Colon cancer screening (Z12.11) Active confirmed Plan Of Treatment Future Test Test Name Order Date COLONOSCOPY 09/19/2021 Insurance Providers Payer Name Payer Address Payer Phone Subscriber Number Group Number Insured Name Patient Relationship to Insured Coverage Start Date Coverage End Date MEDICAID OF [facility] [address] [place] [phone] [id number] ADÁN CREWS Self - patient is the insured Medical (General) History Medical History History ICD Code Gastroesophageal reflux disease Anxiety/depression Nephrolithiasis Allergic rhinitis Asthma Surgical History Surgery Date(Month/Year) Cholecystectomy
--- OUTSIDE RECORDS SUMMARY | 2024-09-14 16:19 | XMS_ITS | Encounter Summary ---
Author Organization [employer] Address [address] [facility] 7t [place] [address] Care Team Providers Care Ammunition Assembly I Laborer Name Role Phone Ivonne Pena MINDY Primary Care Provider [phone] Reason for Visit * Reason Onset Date Comments rs appt 03/10/2023 Encounter Details Date Type Department Care Team ([facility] st Contact Info) Description 03/10/2023 Telephone [facility] ADULT D[facility]AL [address] [place] [address] Paty Romero DDS [address] [place] [address] rs appt Social History Tobacco Use Types [...] Care Team (Late st Contact Info) Description 11/08/2024 2:30 PM EDT Office Visit [facility] [address] [place] [address] Ivonne Pena FNP [address] [place] [address] documented as of this encounter Visit Diagnoses Not on filedocumented in this encounter Additional Health Concerns Assessment Noted Time PHQ-9 Depression Total Score: 0 12/14/19 23 2:40 PM EDT documented as of this encounter Care Teams Ammunition Assembly I Laborer Relationship Specialty Start Date End Date Ivonne Pena FNP [address] [place] [address] PCP - General Family Medicine 12/24/21 documented as of this encounter
--- OUTSIDE RECORDS SUMMARY | 2024-09-14 16:19 | XMS_ITS | Clinical Summary ---
Author Organization [facility] Address [address] [place] [address] Care Team Providers Care Picu Nurse Name Role Phone Unavailable Primary Care Provider [...] (1 of 3 - 19+ 3-dose series) 06/27 Pneumococcal Vaccines 50+ (1 of 1 - PCV) 07/17/2017 Zoster (Shingles) Vaccine (1 of 2) 07/17/2017 COVID-19 Vaccine ( - 2023- season) 2023
--- OUTSIDE RECORDS SUMMARY | 2024-09-14 16:19 | XMS_ITS | Clinical Summary ---
Author Organization [employer] Address [address] [place] [address] 7t [place] [address] Care Team Providers Care Survey Research Professor Name Role Phone Ivonne Pena MINDY Primary Care Provider [phone] Allergies Active Allergy Reactions Criticality Noted Date [...] abnormal prior to 2013) Colonoscopy: [place]/06/[place] [facility] [place] Dr. Augustin. Normal. Repeat 10 years. Dental: [facility] Dental OPH: [facility] Eye Care Last PE: 12/17/23 Vaccines: [...] Encounters Date Type Department Care Team Description 08/13/2024 Orders Only [facility] CHC MED & PEDS [address] [place] [address] Ivonne Pena FNP 07/13/2024 Telephone [facility] ADULT DENTAL [address] [place] [address] Carolina Gray 07/07/2024 Telephone [facility] ADULT DENTAL [address] [place] [address] Carolina Gray from Last 3 Months Immunizations Immunization Administration Dates Next Due Hep A, Adult [...] Upcoming Encounters Date Type Department Care Team ([facility] st Contact Info) Description 11/08/2024 2:30 PM EDT Office Visit [facility] MED & PEDS [address] [place] [address] Ivonne Pena, MINDY [address] [place] [address] Health Maintenance Due Date Last Done Comments CT Colonography 1967 FIT DNA/Cologuard 1967 FIT 1967 FOBT 1965 Sigmoidoscopy 1965 Disability Screening 1965 Pneumococcal Vaccine: 50+ Years (1 of 1 - PCV) 07/17/2017 Zoster Vaccines (1 of 2) 07/17/2017 COVID-19 Vaccine ( season) 2023 10/04/2021, 02/03/2021, 01/11/2021 Influenza Vaccine (#1) 2023 , 02/13/2021, 03/04/2019, Additional history exists Dental X-Ray: Bitewings 07/04/2024 07/04/19 24, 02/19/2023, 02/03/2019, Additional history exists Dental Oral Exam 07/14/2024 01/14/2024, 12/2018, 02/03/2019, Additional history exists Dental Prophylaxis 07/14/2024 01/14/2024, 0 07/04/2023, 02/04/2019, Additional history exists Alcohol/Substance Use Screening 12/16/2024 12/17/2023 Depression Screening 12/16/2024 12/17/2023, 12/17/19 24 SDOH Screening 12/16/2024 12/17/2023 Tobacco Screening 06/02/2025 06/02/2024 Mammogram 08/13/2025 08/13/2024, 05/30, 06/18/2022, Additional history exists Cervical Cancer Screening 06/04/2026 HPV/Cotest 06/04/2026 06/04/2021 Pap Smear 06/04/2026 06/04/2021 Dental X-Ray: Full Mouth 07/04/2026 07/04/2023, 12/2018 Colonoscopy 11/07/2031 11/06/2021 Colorectal Cancer Screening 11/07/2031 DTaP/Tdap/Td Vaccines (3 - Td or Tdap) 11/04/2032 11/04/2022, 07/27/2012, 08/02/2005 RSV Patients and Patients Aged 60 years or older (1 - 1-dose 75+ series) 07/17/2042 Hepatitis A Vaccines Aged Out 08/02/2005, 10/15/19 No longer eligible based on patient's age [...] patient's age to complete this topic Meningococcal B Vaccine Aged Out No l onger eligible based on patient's age to complete [...] Procedure Name Priority Date/Time Associated Diagnosis Comments BI MAMMOGRAM SCREENING TOMOSYNTHESIS BILATERAL Routine 08/13/2024 11:30 AM EDT PROPHYLAXIS - ADULT Routine 01/14/2024 3 :00 [...] RADIOGRAPHIC IMAGES Routine 07/04/2023 3:00 PM EST HM COLONOSCOPY Routine 11/06/2021 THINPREP IMAGING PAP AND HPV MRNA E6/E7 WITH REFLEX TO HPV 16,18/45 Routine 06/04/2021 10:36 AM EST from Last 3 Months or Most Recently Relevant to Health Maintenance Results * BI Mammogram Screening Tomosynthesis Bilateral (08/13/2024 11:30 AM EDT) Anatomical Region Laterality Modality Breast Bilateral Mammography 08/13/2024 11:3 0 AM EDT Narrative 08/22/2024 9:35 AM EDT ? [facility] ? [address] ?[place] [address] ?[phone] ? Mammography Report ? Signed ? Patient: Sal,Carlotta ?MR#: [id number] ?? 50 ? : 1965 ?Acct:[id number] ? Age/Sex: 59 / F ?ADM Date: 08/13/24 ? Loc: HO.MAMMO ? Attending Dr: Ivonne Pena COOKER MEAL ? Ordering Physician: Ivonne Pena COOKER MEAL ?Results: 1Negat ?? xiao ? Date of Service: 08/13/24 ?Follow Up: 1 Year From Orig ?? inal Mammogram ? Procedure(s): MM tomosynthesis screening BI ?? Accession Number(s): [id number] ? cc: Ivonne Pena COOKER MEAL ? EXAMINATION: ?? MM SCREENING DIGITAL BREAST TOMOSYNTHESIS, BILATERAL ? CLINICAL INFORMATION: ? Screening. Asymptomatic. ? COMPARISON: ?? Mammography: Comparison is made with available priors ? TECHNIQUE: ?? Digital breast mammography with tomosynthesis is performed in both the ?? craniocaudal and mediolateral oblique views along with computer-aided ?? detection (CAD). ? FINDINGS: ?? There are scattered areas of fibroglandular density (ACR BI-RADS breast ?? composition Category b). ? There are no significant masses, abnormal calcifications, or other ?? abnormalities. ? MM/MM tomosynthesis screening BI ?? IMPRESSION: ?? No mammographic evidence of malignancy. ? ASSESSMENT: ? BI-RADS BI-RADS 1 - Negative ? RECOMMENDATION: ?? Routine annual mammography screening. ? 1 year F/U ? This examination should not preclude the clinical evaluation of a ?? suspicious palpable abnormality. ? This patient's information was entered into a reminder system with a ?? target due date for their next mammogram. ? Electronically signed by: ??Rukhsana Barrios DO ??08/22/2024 09:32 AM EDT ? Dictated By: ?Rukhsana Barrios DO ? Signed By: ?<Electronically signed by Rukhsana Barrios, DO in OV> ? 08/22/24 0932 ? DD/ 1130 ? TD/TT: 08/13/24 1151 ? Glassware Verifier: ? Procedure Note Donrenater, Image - 08/22/2024 [facility] [address] [place] [address] Mammography Report Signed Patient: Denise Huang DMR#: [id number] 50 : 1965Acct:[id number] Age/Sex: 59 / FADM Date: 08/13/24 Loc: HO.MAMMO Attending Dr: Ivonne Pena COOKER MEAL Ordering Physician: Ivonne PenaPResults: 1Negat xiao Date of Service: 08/13/24Follow Up: 1 Year From Orig inal Mammogram Procedure(s): MM tomosynthesis screening BI Accession Number(s): [id number] cc: Ivonne Pena EXAMINATION: MM SCREENING DIGITAL BREAST TOMOSYNTHESIS, BILATERAL CLINICAL INFORMATION: Screening. Asymptomatic. COMPARISON: Mammography: Comparison is made with available priors TECHNIQUE: Digital breast mammography with tomosynthesis is performed in both the craniocaudal and mediolateral oblique views along with computer-aided detection (CAD). FINDINGS: There are scattered areas of fibroglandular density (ACR BI-RADS breast composition Category b). There are no significant masses, abnormal calcifications, or other abnormalities. MM/MM tomosynthesis screening BI IMPRESSION: No mammographic evidence of malignancy. ASSESSMENT: BI-RADS BI-RADS 1 - Negative RECOMMENDATION: Routine annual mammography screening. 1 year F/U This examination should not preclude the clinical evaluation of a suspicious palpable abnormality. This patient's information was entered into a reminder system with a target due date for their next mammogram. Electronically signed by: Rukhsana Barrios DO 08/22/2024 09:32 AM EDT RP Dictated By: Rukhsana Barrios DO Signed By: <Electronically signed by Rukhsana Barrios DO in OV> 08/22/24 0932 DD/ 1130 TD/TT: 08/13/24 1151 Glassware Verifier: Ivonne GUILLEN IMG BI PROCEDURES Edited Resul t - Final * Hepatitis C Viral RNA, Quantitative, Real-Time PCR (12/19/2023 2:23 PM EDT) Hepatitis C Viral Load <15 NOT DETECTED NOT DETECTED IU/mL [facility] HCV Log PCR <1.18 NOT DETECTED NOT DETECTED Log IU/mL [facility] Comment:For additional infor matjaylan, please refer tohttp://education.[employer]/faq/XUT28h9(This link is being provided for informational/educational purposes only.)THIS TEST WAS PERFORMED AT:[employer] [place] [phone] LUIS MD Blood 12/19/2023 2:23 PM EDT 12/19/2023 4:07 PM EDT Ivonne GUILLEN LAB BLOOD ORDERABLES Final Res ult [facility] [address] [place] [address] [phone] * HIV-1/2 Antigen and Antibodies, Fourth Generation, with Reflexes (12/19/2023 2:23 PM EDT) HIV AB/AG Nonreactive Nonreactive [facility] Comment:HIV-1 p24 Ag and/or HIV-1/HIV-2 Ab not detected.A test result that is nonreactive does not exclude thepossibility of exposure to or infection with HIV-1 and/orHIV-2. Nonreactive results in this assay for individualswith prior exposure to HIV-1 and/or HIV-2 may be due toantigen and antibody levels that are below the limit ofdetection of this assay.The [employer] E[employer] HIV Ag/Ab Combo assay result andsupplemental assay results should be interpreted inconjunction with the patient's clinical presentation,history and other laboratory results. If the results areinconsistent with clinical evidence, additional testing issuggested to confirm the result. Blood Venous blood specimen / Unknown 12/19/2023 2:23 PM EDT 12/19/2023 4:07 PM EDT Ivonne Pena [facility] LAB BLOOD ORDERABLES Final Res ult [facility] [address] [place] [phone] * Hm Colonoscopy (11/06/2021) Colonoscopy Normal Normal 11/06/2021 Historical Provider HEALTH MAINTENANCE Edited Result - Final * THINPREP TIS PAP AND HPV mRNA E6/E7 WITH REFLEX TO HPV 16,18/45 (06/04/2021 10:36 AM EST) Clinical Information: None given [facility] COMMENT SEE COMMENT [facility] [...] has been evaluated with computer assisted technology. [facility] Production Line Welder: SEE COMMENT [facility] Comment: SXA, CT(ASCP) CT screening location: [address] ??[address] HPV nRNA E6/E7 Not Detected Not Detected [facility] Comment: Methodology: Contact Lens Flashing Puncher-Mediated Amplification This assay detects E6/E7 viral messenger RNA (mRNA) from 14 high-risk HPV types (16,18,31,33,35,39,45,51,52,56,58,59,66,68). ? The analytical performance characteristics of this assay have been determined by [employer]. The modifications have not been cleared or approved by the FDA. This assay has been validated pursuant to the CLIA regulations and is used for clinical purposes. ?? For additional information, please refer to http://education.[employer]/faq/RYH053m0 (This link if provided for information/ educational purposes only.) Interpretation/Re sult: Negative for intraepithelial lesion or malignancy. [email or web address] LMP: NONE GIVEN [facility] Prev. BX: NONE GIVEN [facility] Prev. PAP: NONE GIVEN [facility] SOURCE: None given [facility] Statement Of Adequacy: SEE COMMENT [facility] Comment: Satisfactory for evaluation. Endocervical/transformation zone component present. Age and/or menstrual status not provided 06/04/2021 10:3 6 AM EST us Rocío Cha NP LAB PATHOLOGY ORDERABLES Final Result Performing Organization Address City/State/[facility] Co de Phone Number [email or web address] [address] from Last 3 Months or Most Recently Relevant to Health Maintenance Insurance [facility] (MEDICAID) Care Teams Survey Research Professor Relationship Specialty Start Date End Date Ivonne Pena FNP [address] [place], [place] PCP - General Family Medicine 12/24/21
--- OUTSIDE RECORDS SUMMARY | 2024-09-14 16:19 | XMS_ITS | Encounter Summary ---
Author Organization [employer] Address [address] [place] [address] 7[address] [place] [address] Care Team Providers Care Bedspread Folder Name Role Phone Ivonne Pena Primary Care Provider [phone] Reason for Visit * Reason Comments Med Refill Encounter Details Date Type Department Care Team ([facility] st Contact Info) Description 11/03/2022 Refill [facility] MEDICINE [address] [place] [address] Ivonne Pena FNP [address] [place] [address] Social History Tobacco Use Types Packs/Day Years [...] AM EDT documented as of this encounter Functional Status * Over the past 2 weeks, how often have you been bothered by any of the following problems? Question Answer Date of Assessment Author Patient Health Questionnaire-2 Score 0 11/04/2022 10:34 AM EDT Clary Sandra MA * Over the past 2 weeks, how often have you been bothered by any of the following problems? Question Answer Date of Assessment Author Little interest or pleasure in doing things Not at all 11/04/2022 10:34 AM EDT Clary Epstein MA Feeling down, depressed, or hopeless Not at all 11/04/2022 10:34 AM EDT Clary Epstein [place] Trouble falling or staying asleep, or sleeping too much Not at all 11/04/2022 10:34 AM EDT Clary Maria MA Feeling tired or having little energy Not at all 11/04/2022 10:34 AM EDT Clary Epstein [place] Poor appetite or overeating Not at all 11/04/2022 10 :34 AM EDT Clary Epstein [place] Trouble concentrating on things, such as reading the newspaper or watching television Not at all 11/04/2022 10:34 AM EDT Clary Epstein MA Moving or speaking so slowly that other people could have noticed? Or the opposite - being so fidgety or restless that you have been moving around a lot more than usual. Not at all 11/04/2022 10:34 AM EDT Clary Whitlock MA Thoughts that you would be better off or hurting yourself in some way Not at all 11/04/2022 10:34 AM EDT Clary Epstein MA documented as of this encounter Plan of Treatment Upcoming Encounters Date Type Department Care Team (Late st Contact Info) Description 11/08/2024 2:30 PM EDT Office Visit [facility] MED & PEDS [address] [place] [address] Ivonne Pena FNP [address] [place] [address] documented as of this encounter Visit Diagnoses Not on filedocumented in this encounter Care Teams Bedspread Folder Relationship Specialty Start Date End Date Ivonne Pena FNP [address] [place] [address] PCP - General Family Medicine 12/24/21 documented as of this encounter
--- OUTSIDE RECORDS SUMMARY | 2024-09-14 16:19 | XMS_ITS | Encounter Summary ---
Author Organization [employer] Address [address] [place] [address] [address] [place] [address] Care Team Providers Care Quality Auditor Name Role Phone Ivonne Pena Primary Care Provider [phone] Encounter Details Date Type Department Care Team (Latest Contact Info) Description 02/04/2019 Abstract [facility] CONVERSIONS Dental, Provider, DDS Social History [...] Description 11/08/2024 2:30 PM EDT Office Visit [facility] CHC MED & PEDS [address] [place] [address] Ivonne Pena FNP [address] [place] [address] documented as of this encounter Visit Diagnoses Not on filedocumented in this encounter Care Teams Quality Auditor Relationship Specialty Start Date End Date Ivonne Pena FNP [address] [place] [address] PCP - General Family Medicine 12/24/21 documented as of this encounter
== END 2024-09-14 15:45 | disposition home or self-care (01) ==
LOC: HO.HPS 15:16
PROVIDERS: PCP Registered Nurse; Visit Provider Internal Medicine
DX: G47.33 Obstructive sleep apnea (adult) (pediatric) (principal); E66.9 Obesity, unspecified
CPT/HCPCS: 99213

== ENCOUNTER → 2024-09-14 15:15 | Outpatient (BNVA) | payer OTHER, SELFPAY | PROVIDERS: PCP Registered Nurse; Visit Provider Internal Medicine | DX: G47.33 Obstructive sleep apnea (adult) (pediatric) (principal); E66.9 Obesity, unspecified; Z68.41 Body mass index [BMI] 40.0-44.9, adult; Z99.89 Dependence on other enabling machines and devices | CPT/HCPCS: 99212 ==

== ENCOUNTER 2024-09-22 14:21 | Outpatient (AMB) | payer OTHER, SELFPAY ==
[2024-09-22 14:24] VITALS: BP 114/60; PULSE 85; BMI 40.2
--- NOTE | 2024-09-22 14:24 | MHC.OFFVIS ---
Vital Signs 09/22/24 14:24 Height 5 ft 2 in Weight 220 lb 0.341 oz BMI 40.2 BP 114/60 Blood Pressure Location Lt brachial Position Sitting Pulse 85 Pulse Source Pulse Oximeter Intake Visit Reasons: F/U s/p sleep study Knife Cutter Required: No Allergies Seasonal Allergies Allergy (Verified 09/22/24 14:26) Unknown amoxicillin Adverse Reaction (Unknown, Verified 09/22/24 14:26) diarrhea Medication List - Last Reconciled 09/22/24 by Tee Collazo NP celecoxib (Celebrex) 50 mg PO ONCE PRN cholecalciferol (vitamin D3) (Vitamin D3) 125 mcg PO DAILY cyclobenzaprine 10 mg PO BEDTIME PRN famotidine 20 mg PO BID PRN loratadine (Claritin) 10 mg PO DAILY HPI Comments Details: This is a 59-year-old female patient coming in for a follow-up visit. Patient was previously seen in the office for heart palpitations and subsequently underwent Holter study, echo, and a sleep study. The sleep study was positive for sleep apnea and is being followed by pulmonology for this. Today, patient reports feeling well overall and significant improvement in the palpitations. Patient denies any current cardiac symptoms including exertional chest pain, shortness of breath, fatigue, dizziness, orthopnea, PND, leg edema, presyncope, or syncope. Patient is otherwise with no known history of cardiomyopathy, ischemic disease, or coronary artery disease. [facility] Medical History Obesity (BMI 30-39.9) TAMI (obstructive sleep apnea) History of nephrolithiasis Allergic rhinitis Asthma Anxiety and depression GERD (gastroesophageal reflux disease) Surgical History History of cholecystectomy Family History Mother HTN (hypertension) DM2 (diabetes mellitus, type 2) Father DM2 (diabetes mellitus, type 2) Social History Alcohol intake: never Patient Tobacco Use Status: Never used Tobacco Review of Systems ENT Reports dizziness Card Denies chest pain, Denies chest pain at rest, Denies chest pain with activity, Denies rapid heart rate, Denies pedal edema, Denies edema, Denies leg edema, Denies lightheadedness, Denies palpitations, Denies dyspnea, Denies dyspnea on exertion and Denies orthopnea Resp Denies cough, Denies dyspnea and Denies dyspnea on exertion GI Denies hematochezia and Denies change in stool character Musc Denies abnormal gait, Reports limited range of motion, Reports muscle cramps, Denies muscle weakness, Denies numbness, Denies radiating pain into limb, Denies stiffness and Denies tingling Neuro Denies abnormal gait, Reports dizziness, Denies numbness and Denies tingling Endo Denies palpitations Physical Exam Vital Signs: Last Vital Signs Pulse 85 09/22/24 14:24 BP 114/60 09/22/24 14:24 BMI result Body Mass Index 40.2 Const General: cooperative, healthy appearing, comfortable and no acute distress Orientation/consciousness: patient oriented x3 HEENT Head: Yes normal to inspection Neck Neck: Yes normal visual inspection, Yes trachea midline and Yes supple Chest Chest palpation & inspection: normal inspection of the chest Resp Effort & Inspection: normal respiratory effort Auscultation: clear to auscultation bilaterally, no crackles, no rales, no rhonchi and no wheezes Cardio Jugular venous distension: no JVD Palpation: normal PMI Rate: regular rate Rhythm: regular rhythm Heart sounds: S1 normal heart sound present, S2 normal heart sound present, no click, no gallops, no murmurs and no rubs Peripheral pulses: Peripheral pulses 2+ throughout GI Inspection: Yes normal to inspection Palpation (GI): Soft to palpation Auscultation: normal bowel sounds Skin General skin exam: no rashes or lesions noted Neuro General: patient oriented x3 Extrem General: Yes normal to inspection, No no pedal edema and No calf tenderness Psych Appearance: grossly normal Mental Status: mental status grossly normal Speech and movement: Normal speech and movement present Office Procedures EKG Details: EKG today showed normal sinus rhythm, 85 beats per minute, [place], [place]. [id number], Complete Assessment & Plan Assessment & Plan (1) Heart palpitations: Code(s): R00.2 - Palpitations Category: Medical (2) TAMI (obstructive sleep apnea): Code(s): G47.33 - Obstructive sleep apnea (adult) (pediatric) Category: Medical (3) Obesity (BMI 30-39.9): Code(s): E66.9 - Obesity, unspecified Category: Medical Plan 04/26/2024-patient underwent a Holter study that showed baseline normal sinus rhythm with the average heart rate of 88 beats per minute, with a occasional PACs and PVCs. 04/26/2024-echo study showed normal LV systolic function with an ejection fraction between 60-65% with grade 1 diastolic dysfunction. 05/20/2024-sleep study was positive for moderately severe obstructive sleep apnea. Patient is being followed by pulmonology for this and is currently on CPAP therapy. Patient states that she has getting adjusted to the machine and is working well. Continue CPAP. Given these findings and resolution of her symptoms, no further testing indicated at this time. Blood pressure today within normal limits. Patient's most recent LDL from November 2023 at 103. Patient states she is working on this with her PCP and it is stable now. Target for an LDL less than 100. Advised heart healthy diet, regular exercise, losing weight, and management of vascular risk factors. Follow-up on an as-needed basis. In the interim, patient will call the office with any concerns or change in symptoms. This note was generated using voice recognition software. While every effort has been made to ensure accuracy and proper paper products supervisor, there may be occasional errors that could affect the content or meaning of the described symptoms. Orders: Orders AMB EKG-In Office Today R00.2 - Palpitations Coding Level of Care Code Est Pt Level 3 (44455) Complex EM visit Add On G2211 Diagnoses Heart palpitations R00.2 TAMI (obstructive sleep apnea) G47.33 Obesity (BMI 30-39.9) E66.9 CPT Codes EKG - CPT: 70940-[id number], Complete ([id number]) Time Spent (min) 29 Comment Time spent in reviewing the chart, test results, assessment, counseling and documentation.
--- OUTSIDE RECORDS SUMMARY | 2024-09-22 15:15 | XMS_ITS | Patient Health Record ---
Author Organization [facility] Address [address] [place] [address] Care Team Providers Care Cryptologic Technician Technical Name Role Phone Rocío Cha Primary Care [...] Problem Status W/U Status Risk Notes Problem [id number] Colon cancer screening (Z12.11) Active confirmed Plan Of Treatment Future Test Test Name Order Date COLONOSCOPY 09/19/2021 Insurance Providers Payer Name Payer Address Payer Phone Subscriber Number Group Number Insured Name Patient Relationship to Insured Coverage Start Date Coverage End Date MEDICAID OF [facility] [address] [place] [id number] ADÁN CREWS Self - patient is the insured Medical (General) History Medical History History ICD Code Gastroesophageal reflux disease Anxiety/depression Nephrolithiasis Allergic rhinitis Asthma Surgical History Surgery Date(Month/Year) Cholecystectomy
== END 2024-09-22 14:41 | disposition home or self-care (01) ==
LOC: HO.HCS 14:21
PROVIDERS: PCP Registered Nurse
DX: R00.2 Palpitations (principal); G47.33 Obstructive sleep apnea (adult) (pediatric); E66.9 Obesity, unspecified
CPT/HCPCS: 93010; 99213; G2211

== ENCOUNTER → 2024-09-22 14:21 | Outpatient (BNVA) | payer OTHER, SELFPAY | PROVIDERS: PCP Registered Nurse | DX: R00.2 Palpitations (principal); G47.33 Obstructive sleep apnea (adult) (pediatric); E66.9 Obesity, unspecified; Z68.41 Body mass index [BMI] 40.0-44.9, adult | CPT/HCPCS: 93005; 99212 ==

== ENCOUNTER 2024-12-17 11:28 | Outpatient (REF) | payer OTHER, SELFPAY ==
--- OUTSIDE RECORDS SUMMARY | 2024-12-17 11:30 | XMS_ITS ---
Author Name [facility] Organization Unknown Care Team Organization Name Specialty Phone Email Start Date End [facility]
--- OUTSIDE RECORDS SUMMARY | 2024-12-17 11:30 | XMS_ITS | Encounter Summary ---
Author Organization [employer] Address [address] [place] [address] Care Team Providers Care Financial Aid Coordinator Name Role Phone Ivonne Pena Primary Care Provider [phone] Reason for Visit * Reason Onset Date Comments chart prep 12/16/2024 Encounter Details Date Type Department Care Team ([facility] Contact Info) Description 12/16/2024 Telephone [facility] MEDICINE [address] [place] [address] Ivonne Pena FNP [address] [place] [address] chart prep Social History Tobacco Use Types Packs/Day Years Used Date Smoking Tobacco: Never Passive Smoke Exposure: Never Smokeless Tobacco: Never Alcohol Use Standard Drinks/Week Comments Never 0 (1 standard drink = 0.6 oz pur e alcohol) Depression Answer Date Recorded Patient Health Questionnaire-9 Score 0 12/17/2024 Patient Health Questionnaire-9 Score 0 12/17/2024 Last PHQ-9: Questionnaire Data Not on file 0 12/17/2024 Housing Stability Answer Date Recorded What is [...] Date Recorded Patient Health Questionnaire-2 Score 0 12/17/2024 Internet Access Answer Date Recorded Internet Access [...] encounter Miscellaneous Notes * Telephone Encounter - Clary Epstein [place] - 12/16/2024 1:49 PM EDT Chart Prep Labs: not applicable Images: done Referrals: complete Vaccines due: Covid, Flu, PCV20, and Zoster Screenings: not applicable Overdue care gaps: SBIRT, PHQ-9, JEFFERSON-7, and Disability screen documented in this encounter Plan of Treatment Not on file documented as of this encounter Visit Diagnoses Not on filedocumented in this encounter Additional Health Concerns Assessment Noted Time PHQ-9 Depression Total Score: 0 12/17/19 24 9:23 AM EDT documented as of this encounter Care Teams Financial Aid Coordinator Relationship Specialty Start Date End Date Ivonne Pena FNP [address] [place] [address] PCP - General Family Medicine 12/24/21 documented as of this encounter
--- OUTSIDE RECORDS SUMMARY | 2024-12-17 11:30 | XMS_ITS | Patient Health Record ---
Author Organization [facility] Address [address] [place] [address] Care Team Providers Care Ship'S Carpenter Name Role Phone Rocío Cha Primary Care Provider Jonas Gaines Jr Unavailable [phone] Allergies Allergen (clinical drug ingredient) Drug/Non Drug [...] Problem Status W/U Status Risk Notes Problem [id number] Colon cancer screening (Z12.11) Active confirmed Plan Of Treatment Future Test Test Name Order Date COLONOSCOPY 09/19/2021 Insurance Providers Payer Name Payer Address Payer Phone Subscriber Number Group Number Insured Name Patient Relationship to Insured Coverage Start Date Coverage End Date MEDICAID OF [facility] [address] [place] [phone] [id number] ADÁN CREWS Self - patient is the insured Medical (General) History Medical History History ICD Code Gastroesophageal reflux disease Anxiety/depression Nephrolithiasis Allergic rhinitis Asthma Surgical History Surgery Date(Month/Year) Cholecystectomy
--- OUTSIDE RECORDS SUMMARY | 2024-12-17 11:30 | XMS_ITS | Clinical Summary ---
Author Organization [facility] Address [address] [place] [address] Care Team Providers Care Medical Office Coordinator Name Role Phone Unavailable Primary Care Provider [...]
[2024-12-20 13:52] LABS: TS Negative Control Passed; TS Panel A 0; TS Panel B 0; TS Positive Control Passed; TSpotTB Negative (Negative)
== END 2024-12-17 11:29 | disposition home or self-care (01) ==
LOC: HO.HHCL 11:28
PROVIDERS: PCP Registered Nurse; Visit Provider Internal Medicine
DX: Z00.00 Encounter for general adult medical examination without abnormal findings (principal); Z11.3 Encounter for screening for infections with a predominantly sexual mode of transmission
CPT/HCPCS: 36415; 86481

== ENCOUNTER 2025-01-06 15:30 | Outpatient (AMB) | payer OTHER, SELFPAY ==
[2025-01-06 15:34] VITALS: BP 122/77; PULSE 99; O2SAT 100; BMI 40.7
--- NOTE | 2025-01-06 15:34 | MHC.OFFVIS ---
Vital Signs 01/06/25 15:34 Height 5 ft 2 in Weight 222 lb 10.67 oz BMI 40.7 BP 122/77 Blood Pressure Location Rt brachial Position Sitting Pulse 99 Pulse Source Pulse Oximeter Pulse Oximetry (%) 100 Oxygen Delivery Method Room Air Intake Visit Reasons: Obstructive sleep apnea Intake Note: Patient is here for a follow up on TAMI Allergies Seasonal Allergies Allergy (Verified 01/06/25 15:51) Unknown amoxicillin Adverse Reaction (Unknown, Verified 01/06/25 15:51) diarrhea Medication List - Last Reconciled 01/06/25 by Selene Ledesma MD celecoxib (Celebrex) 50 mg PO ONCE PRN cholecalciferol (vitamin D3) (Vitamin D3) 125 mcg PO DAILY cyclobenzaprine 10 mg PO BEDTIME PRN famotidine 20 mg PO BID PRN loratadine (Claritin) 10 mg PO DAILY Do you need a note to return to daycare/school/sports/work: No HPI HPI Obstructive sleep apnea: Details: THIS 59 YEARS OLD FEMALE WITH MORBID OBESITY, BMI 40.7, IS BEING TREATED FOR OBSTRUCTIVE SLEEP APNEA. SHE USES HER CPAP VERY REGULARLY EVERY NIGHT AND SLEEPS WELL. NASAL PILLOWS WITH AUTO PAP MODE AND SHE IS USING A PRESSURE OF 7-8 CM MOST OF THE. SHE SLEEPS GOOD BETWEEN 7-8 HOURS PER NIGHT. SHE DENIES ANY PROBLEM WITH THE NASAL PILLOWS OR CPAP MACHINE. .SHE REMAINS ACTIVE DURING THE DAYTIME HAS NOT BEEN ABLE TO LOSE MUCH WEIGHT. [facility] Medical History (Updated 01/06/25 @ 15:57 by Selene Ledesma MD) Morbid obesity Obesity (BMI 30-39.9) TAMI (obstructive sleep apnea) History of nephrolithiasis Allergic rhinitis Asthma Anxiety and depression GERD (gastroesophageal reflux disease) Surgical History History of cholecystectomy Family History Mother HTN (hypertension) DM2 (diabetes mellitus, type 2) Father DM2 (diabetes mellitus, type 2) Social History Alcohol intake: never Patient Tobacco Use Status: Never used Tobacco Review of Systems Const All systems reviewed & are unremarkable except as noted in HPI and below Eyes Reports no additional complaints ENT Reports nasal congestion (Mild intermittent) Card Reports rapid heart rate and Reports irregular heart rhythm Resp Reports no additional complaints GI Reports heartburn (Intermittent symptoms of GERD) Reports no additional complaints Musc Reports other (Aches and pains in general body, described as fibromyalgia) Skin/Breast Reports system reviewed and no additional complaints, except as documented Neuro Reports no additional complaints Psych Reports no additional complaints Endo Reports no additional complaints Aller/Immun Reports no additional complaints Physical Exam Vital Signs: Last Vital Signs Pulse 99 01/06/25 15:34 BP 122/77 01/06/25 15:34 Pulse Ox 100 01/06/25 15:34 Oxygen Delivery Method Room Air 01/06/25 15:34 BMI result Body Mass Index 40.7 Const General: healthy appearing (Except for being overweight), comfortable, no acute distress, alert and awake Orientation/consciousness: patient oriented x3 HEENT Head: Yes normal to inspection General nose exam: No nasal polyps present and No nasal discharge present Face and sinus: Yes sinuses nontender Mouth: oropharynx abnormals (Somewhat narrow and crowded, Mallampati class 4) Throat: Yes posterior oropharynx normal Eyes General: appearance normal, both eyes and all related structures Neck Neck: Yes normal visual inspection, Yes no lymphadenopathy, Yes trachea midline, Yes no JVD and Yes other (Neck circumference 16 in) Thyroid: Thyroid normal Chest Chest palpation & inspection: normal inspection of the chest, normal palpation of entire chest wall and no tenderness Resp Effort & Inspection: normal respiratory effort Auscultation: clear to auscultation bilaterally, no crackles and no wheezes Cardio Palpation: normal PMI Rate: regular rate Rhythm: regular rhythm Heart sounds: no gallops and no murmurs Peripheral pulses: Peripheral pulses 2+ throughout GI Palpation (GI): Soft to palpation, nontender, No hepatosplenomegaly present and no masses Auscultation: normal bowel sounds Back/Spine/Pelvis Thoracic/Lumbar Spine: thoracic and lumbar spine normal to inspection Skin General skin exam: no rashes or lesions noted Neuro General: patient oriented x3 and no focal motor deficits Cranial nerves: Yes CN's II-XII intact bilaterally Extrem General: Yes normal to inspection, Yes no clubbing, cyanosis or edema and Yes no calf tenderness Psych Appearance: grossly normal and well kempt Speech and movement: Normal speech and movement present Results Reviewed Results Reviewed: COMPLIANCE REPORT FOR THE LAST 30 NIGHTS IS REVIEWED. SHE MISSED ONLY 1 NIGHT, WHEN SHE WENT TO SLEEP BEFORE PUTTING THE MASK ON. AVERAGE USE IT PER NIGHT 7 HOURS 42 MINUTES. .NO AIR LEAK AND RESIDUAL AHI ONLY 0.4 Assessment & Plan Assessment & Plan (1) Morbid obesity: Comment: CURRENT BMI 40.7. SHE HAS NOT LOST ANY WEIGHT. Code(s): E66.01 - Morbid (severe) obesity due to excess calories Category: Medical Plan: DISCUSSED WITH HER ABOUT NEED TO LOSE WEIGHT. SHE NEEDS TO CUT. DOWN THE CALORIES INTAKE SHE IS ENCOURAGED TO DO SOME EXERCISE DAILY AND WALK UP TO 2 MILES PER DAY. (2) TAMI (obstructive sleep apnea): Comment: TAMI IS WELL TREATED, WITH THE USE OF CPAP. SHE IS VERY COMPLIANT, AND SLEEPS VERY GOOD BETWEEN 7-8 HOURS PER NIGHT. Code(s): G47.33 - Obstructive sleep apnea (adult) (pediatric) Category: Medical Plan: COMMENDED FOR GOOD COMPLIANCE AND ENCOURAGED TO KEEP ON USING CPAP REGULARLY EVERY NIGHT. WILL RECHECK Q 6 MONTHS. Coding Level of Care Code Est Pt Level 3 (67204) Diagnoses Morbid obesity E66.01 TAMI (obstructive sleep apnea) G47.33
--- OUTSIDE RECORDS SUMMARY | 2025-01-06 18:40 | XMS_ITS | Patient Health Record ---
Author Organization [facility] Address [address] [place] [address] Care Team Providers Care Computer Numeric Control Setter Name Role Phone Rocío Cha Primary Care [...] Problem Status W/U Status Risk Notes Problem [id number] Colon cancer screening (Z12.11) Active confirmed Plan Of Treatment Future Test Test Name Order Date COLONOSCOPY 09/19/2021 Insurance Providers Payer Name Payer Address Payer Phone Subscriber Number Group Number Insured Name Patient Relationship to Insured Coverage Start Date Coverage End Date MEDICAID OF [facility] [address] [place] [phone] [id number] ADÁN CREWS Self - patient is the insured Medical (General) History Medical History History ICD Code Gastroesophageal reflux disease Anxiety/depression Nephrolithiasis Allergic rhinitis Asthma Surgical History Surgery Date(Month/Year) Cholecystectomy
--- OUTSIDE RECORDS SUMMARY | 2025-01-06 18:40 | XMS_ITS | Clinical Summary ---
Author Organization [facility] Address [address] [place] [address] Care Team Providers Care Pneumatic Jacketer Name Role Phone Unavailable Primary Care Provider [...] Vaccine (1 of 2) 07/17/2017 COVID-19 Vaccine (1 - season) 2024
== END 2025-01-06 15:54 | disposition home or self-care (01) ==
LOC: HO.HPS 15:31
PROVIDERS: PCP Registered Nurse; Visit Provider Internal Medicine
DX: E66.01 Morbid (severe) obesity due to excess calories (principal); G47.33 Obstructive sleep apnea (adult) (pediatric)
CPT/HCPCS: 99213

== ENCOUNTER → 2025-01-06 15:30 | Outpatient (BNVA) | payer OTHER, SELFPAY | PROVIDERS: PCP Registered Nurse; Visit Provider Internal Medicine | DX: G47.33 Obstructive sleep apnea (adult) (pediatric) (principal); E66.01 Morbid (severe) obesity due to excess calories; Z68.41 Body mass index [BMI] 40.0-44.9, adult | CPT/HCPCS: 99212 ==